=== PATIENT | male | born 1985 | race Caucasian/White ===

== ENCOUNTER → 2018-05-26 | Outpatient (CLI) | payer OTHER | END | disposition home or self-care (01) | LOC: RAD 12:09 | DX: Z13.83 Encounter for screening for respiratory disorder NEC (principal); Z87.09 Personal history of other diseases of the respiratory system | CPT/HCPCS: 71046 ==

== ENCOUNTER → 2018-06-21 | Outpatient (CLI) | payer OTHER ==
[2018-06-21 13:32] LABS: ADD MAN DIFF? NO
[2018-06-21 13:37] LABS: BASO # 0.1 x10^3/uL (0.0-0.2); BASO % 3 % (0-3); EOS # 0.2 x10^3/uL (0.0-0.7); EOS % 4 % (0-3); HEMATOCRIT 38.2 % (39.0-53.0); HEMOGLOBIN 13.2 g/dL (13.0-17.5); LYMPH # 1.6 x10^3/uL (1.0-4.8); LYMPH % 28 % (24-48); MEAN CORPUSCULAR HEMOGLOBIN 32 pg (25-35); MEAN CORPUSCULAR HGB CONC 35 g/dL (31-37); MEAN CORPUSCULAR VOLUME 91 fL (79-100); MONO # 0.5 x10^3/uL (0.0-1.1); MONO % 9 % (0-9); NEUT # 3.1 x10^3uL (1.8-7.7); NEUT % 56 % (31-73); PLATELET COUNT 309 x10^3/uL (140-400); RED BLOOD COUNT 4.19 x10^6/uL (4.30-5.70); RED CELL DISTRIBUTION WIDTH 13.2 % (11.5-14.5); WHITE BLOOD COUNT 5.5 x10^3/uL (4.0-11.0)
[2018-06-21 13:43] LABS: ANION GAP 8 (6-14); BLOOD UREA NITROGEN 2 mg/dL (8-26); CALCIUM 8.9 mg/dL (8.5-10.1); CARBON DIOXIDE 30 mmol/L (21-32); CHLORIDE 104 mmol/L (98-107); GFR 86.1; GLUCOSE 83 mg/dL (70-99); POTASSIUM 3.8 mmol/L (3.5-5.1); SODIUM 142 mmol/L (136-145)
[2018-06-21 13:57] LABS: INR 1.1 (0.8-1.1); PARTIAL THROMBOPLASTIN TIME 31 SEC (24-38); PROTHROMBIN TIME PATIENT 13.3 SEC (11.7-14.0)
== END | disposition home or self-care (01) ==
LOC: SURGPAT 13:12
DX: Z01.818 Encounter for other preprocedural examination (principal); I10 Essential (primary) hypertension; J43.9 Emphysema, unspecified; F32.9 Major depressive disorder, single episode, unspecified; Z81.8 Family history of other mental and behavioral disorders; Z87.09 Personal history of other diseases of the respiratory system; Z68.1 Body mass index [BMI] 19.9 or less, adult; Z91.5 Personal history of self-harm
CPT/HCPCS: 36415; 80048; 85025; 85610; 85730

== ENCOUNTER 2018-06-28 07:30 | Inpatient (IN) | payer OTHER ==
[~2018-06-28] VITALS: Ht 172.7 cm; Wt 56.8 kg
[~2018-06-28 07:30] MED LIST: HYDR25TA PO; IV RINGERS,LACTATED 1000ML 1,000 ML IV SCH; LIDOCAINE 1% PF 2 ML VIAL. ID PRN; MORPHINE SULFATE 2 MG/ML DISP.SYRIN. IV PRN; ONDANSETRON PF 4 MG/2 ML VIAL. IV PRN; PROCHLORPERAZINE 10 MG/2 ML VIAL. IV PRN; fentaNYL PF VIAL 100 MCG/2 ML VIAL IV PRN
[2018-06-28] MEDS ORDERED: LIDOCAINE 1% PF 30 ML VIAL. ONE (09:42)
[2018-06-28] MEDS ORDERED: BUPIVACAINE 0.5% 50 ML VIAL. ONE (09:43)
[2018-06-28] MEDS ORDERED: SURGICEL HEMOSTAT 4X8 EACH. ONE (09:44)
[2018-06-28] MEDS ORDERED: LIDOCAINE 2% PF Vial for OR 5 ML VIAL. ONE (10:21)
[2018-06-28] MEDS ORDERED: MIDAZOLAM HCL/PF 2 MG/2 ML VIAL. ONE (10:21)
[2018-06-28] MEDS ORDERED: PROPOFOL 20 ML IV ONE (10:21)
[2018-06-28] MEDS ORDERED: fentaNYL PF VIAL 100 MCG/2 ML VIAL ONE ×4 (10:21→14:10)
[2018-06-28] MEDS ORDERED: FAMOTIDINE 20 MG/2 ML VIAL ONE (10:21)
[2018-06-28] MEDS ORDERED: DEXAMETHASONE SOD PHOS 20 MG/5 ML VIAL. ONE (10:21)
[2018-06-28] MEDS ORDERED: ONDANSETRON PF 4 MG/2 ML VIAL. ONE (10:21)
[2018-06-28] MEDS ORDERED: ROCURONIUM 50 MG/5 ML VIAL. ONE (10:21)
--- NOTE | 2018-06-28 11:42 | PDOC1 ---
History and Physical Date of Admission Date of Admission DATE: 06/28/18 TIME: 11:37 Identification/Chief Complaint Chief Complaint Recurrent PTX Source Source: Chart review, Patient History of Present Illness History of Present Illness 32 year old male with a hx of B/L PTXs. s/p L VATS, apical wedge and mechanical pleurodesis 2 months ago. He returns today for a R VATS, wedge and pleurodesis. He denies any symptoms. Past Medical History Cardiovascular: No pertinent hx Pulmonary: COPD, Other CENTRAL NERVOUS SYSTEM: Seizure GI: No pertinent hx Heme/Onc: No pertinent hx Psych: Anxiety, Addictions, Bipolar, Depression, Psychosis Rheumatologic: No pertinent hx Infectious disease: No pertinent hx Renal/: No pertinent hx Endocrine: No pertinent hx Past Surgical History Past Surgical History: Other (L VATS) Family History Family History: No Significant Social History ALCOHOL: rare Current Medications Current Medications Current Medications Ondansetron HCl (Zofran) 4 mg PRN Q6HRS PRN IV NAUSEA/VOMITING; Start 06/28/18 at 07:00; Stop 06/28/18 at 23:00 Fentanyl Citrate (Fentanyl 2ml Vial) 25 mcg PRN Q5MIN PRN IV MILD PAIN; Start 06/28/18 at 07:00; Stop 06/28/18 at 23:00 Fentanyl Citrate (Fentanyl 2ml Vial) 50 mcg PRN Q5MIN PRN IV MODERATE TO SEVERE PAIN; Start 06/28/18 at 07:00; Stop 06/28/18 at 23:00 Morphine Sulfate (Morphine Sulfate) 1 mg PRN Q10MIN PRN IV SEVERE PAIN; Start 06/28/18 at 07:00; Stop 06/28/18 at 23:00 Ringer's Solution 1,000 ml @ 30 mls/hr Q24H IV Last administered on 06/28/18at 09:59; Start 06/28/18 at 07:00; Stop 06/28/18 at 18:59 Lidocaine HCl (Xylocaine-Mpf 1% Vial) 2 ml PRN 1X PRN ID IV START; Start at 07:00; Stop 06/28/18 at 23:00 Prochlorperazine Edisylate (Compazine) 5 mg PACU PRN PRN IV NAUSEA, MRX1; Start 06/28/18 at 07:00; Stop 06/28/18 at 23:00 Cefazolin Sodium 50 ml @ 100 mls/hr 1X PREOP PRN IV PRIOR TO PROCEDURE; Start 06/28/18 at 06:00; Stop 06/28/18 at 18:00 Lidocaine HCl (Lidocaine Pf 2% Vial) 5 ml STK-MED ONCE .ROUTE ; Start 06/28/18 at 10:21; Stop 06/28/18 at 10:22; Status DC Famotidine (Pepcid Vial) 20 mg STK-MED ONCE .ROUTE ; Start 06/28/18 at 10:21; Stop 06/28/18 at 10:22; Status DC Dexamethasone Sodium Phosphate (Decadron) 20 mg STK-MED ONCE .ROUTE ; Start 06/28 at 10:21; Stop 06/28/18 at 10:22; Status DC Propofol 20 ml @ As Directed STK-MED ONCE IV ; Start 06/28/18 at 10:21; Stop 06/28 at 10:22; Status DC Ondansetron HCl (Zofran) 4 mg STK-MED ONCE .ROUTE ; Start 06/28/18 at 10:21; Stop 06/28/18 at 10:22; Status DC Midazolam HCl (Versed) 2 mg STK-MED ONCE .ROUTE ; Start 06/28/18 at 10:21; Stop 06/28/18 at 10:22; Status DC Fentanyl Citrate (Fentanyl 2ml Vial) 100 mcg STK-MED ONCE .ROUTE ; Start at 10:21; Stop 06/28/18 at 10:22; Status DC Rocuronium [place] (Zemuron) 50 mg STK-MED ONCE .ROUTE ; Start 06/28/18 at 10:21 ; Stop 06/28/18 at 10:22; Status DC Lidocaine HCl (Lidocaine 1% Pf) 30 ml STK-MED ONCE .ROUTE ; Start 06/28/18 at 09: 42; Stop 06/28/18 at 10:44; Status DC Bupivacaine HCl (Marcaine 0.5%) 50 ml STK-MED ONCE .ROUTE ; Start 06/28/18 at 09: 43; Stop 06/28/18 at 10:44; Status DC Cellulose (Surgicel Hemostat 4x8) 1 each STK-MED ONCE .ROUTE ; Start 06/28/18 at 09:44; Stop 06/28/18 at 10:45; Status DC Active Scripts Active Reported Hydroxyzine Hcl 25 Mg Tablet 1 Tab PO TID Allergies Allergies: Coded Allergies: aspartame (Verified Allergy, Severe, SUGAR SUBSTITUTES = THROAT SWELLS, 06/28/18) spinach (Verified Allergy, Severe, 06/28/18) throat swelling diazepam (Verified Allergy, Intermediate, 06/28/18) per pt haloperidol (Verified Adverse Reaction, Severe, 06/28/18) hyperthermia lorazepam (Verified Adverse Reaction, Severe, 06/28/18) ativan causes patient to become very violent alprazolam (Verified Adverse Reaction, Intermediate, 06/28/18) irritability, "psychotic break" per patient bupropion (Verified Adverse Reaction, Intermediate, 06/28/18) anxiety fluticasone (Verified Adverse Reaction, Intermediate, 06/28/18) irritation,nasal bleeding ROS General: No: Chills, Night Sweats, Fatigue, Malaise, Appetite PSYCHOLOGICAL ROS: YES: Anxiety, Behavioral Disorder; No: Concentration difficultie, Decreased libido, Depression, Disorientation, Hallucinations, Hostility, Irritablity, Memory difficulties, Mood Swings, Obsessive thoughts, Physical abuse, Sexual abuse, Sleep disturbances, Suicidal ideation Eyes: No Blurry vision, No Decreased vision, No Double vision, No Dry eyes, No Excessive tearing, No Eye Pain, No Itchy Eyes, No Loss of vision, No Photophobia , No Scotomata, No Uses contacts, No Uses glasses HEENT: No: Heacaches, Visual Changes, Hearing change, Nasal congestion, Nasal discharge, Oral lesions, Sinus pain, Sore Throat, Epistaxis, Sneezing, Snoring, Tinnitus, Vertigo, Vocal changes ALLERGY AND IMMUNOLOGY: No: Hives, Insect Bite Sensitivity, Itchy/Watery Eyes, Nasal Congestion, Post Nasal Drip, Seasonal Allergies Hematological and Lymphatic: No: Bleeding Problems, Blood Clots, Blood Transfusions, Brusing, Night Sweats, Pallor, Swollen Lymph Nodes ENDOCRINE: No: Breast Changes, Galactorrhea, Hair Pattern Changes, Hot Flashes , Malaise/lethargy, Mood Swings, Palpitations, Polydipsia/polyuria, Skin Changes , Temperature Intolerance, Unexpected Weight Changes Respiratory: No: Cough, Hemoptysis, Orthopnea, Pleuritic Pain, Shortness of breath, SOB with excertion, Sputum Changes, Stridor, Tachypnea, Wheezing Cardiovascular: No Chest Pain, No Palpitations, No Orthopnea, No Paroxysmal Noc. Dyspnea, No Edema, No Lt Headedness Gastrointestinal: No Nausea, No Vomiting, No Abdominal Pain, No Diarrhea, No Constipation, No Melena, No Hematochezia Genitourinary: No Dysuria, No Frequency, No Incontinence, No Hematuria, No Retention, No Discharge, No Urgency, No Pain, No Flank Pain Musculoskeletal: No Gait Disturbance, No Joint Pain, No Joint Stiffness, No Joint Swelling, No Muscle Pain, No Muscular Weakness, No Pain In:, No Swelling In:, No Other Neurological: Yes Weakness; No Behavorial Changes, No Bowel/Bladder ControlChng, No Confusion, No Dizziness, No Gait Disturbance, No Headaches, No Impaired Coord/balance, No Memory Loss, No Numbness/Tingling, No Seizures, No Speech Problems, No Tremors, No Visual Changes, No Other Skin: No Dry Skin, No Eczema, No Hair Changes, No Lumps, No Mole Changes, No Mottling, No Nail Changes, No Pruritus, No Rash, No Skin Lesion Changes, No Acne Physical Exam General: Alert, Oriented X3, No acute distress HEENT: Atraumatic, PERRLA, EOMI Lungs: Clear to auscultation Heart: S1S2, RRR, no thrills, no gallops, no murmurs Abdomen: Normal bowel sounds, Soft, No tenderness Rectal Exam: deferred Extremities: No edema Skin: No significant lesion Neuro: Normal gait, Normal speech, Strength at 5/5 X4 ext, Normal tone, Sensation intact, Cranial nerves 3-12 NL, Reflexes 2+ Vitals Vitals Vital Signs Date Time Temp Pulse Resp B/P (MAP) Pulse Ox O2 Delivery O2 Flow Rate FiO2 06/28/18 09:53 98.0 65 18 100 98.0 06/28/18 09:49 105/65 Room Air VTE Prophylaxis Ordered VTE Prophylaxis Devices: Yes VTE Pharmacological Prophylaxi: Yes Assessment/Plan Assessment/Plan 2 year old male with a hx of B/L PTXs. s/p L VATS, apical wedge and mechanical pleurodesis 2 months ago. He denies any symptoms. Proceed with R VATS, wedge and pleurodesis. TOBY MG MD Jun 28, 2018 11:42
[2018-06-28] MEDS ORDERED: NEOSTIGMINE METHYLSULFATE 5 MG/5 ML SYRINGE. ONE (12:07)
[2018-06-28] MEDS ORDERED: GLYCOPYRROLATE 1 MG/5 ML VIAL. ONE (12:07)
[2018-06-28] MEDS ORDERED: SEVOFLURANE 61 TO 120 MINUTES. IH ONE (12:43)
--- NOTE | 2018-06-28 12:49 | PDOC ---
BRIEF OPERATIVE NOTE Date: Jun 28, 2018 Pre-Op Diagnosis Recurrent right spontaneous pneumothorax COPD Post-Op Diagnosis Recurrent right spontaneous pneumothorax COPD Procedure Performed Right Video-Assisted thoracoscopy, right upper lobe wedge resection x 2, mechanical pleurodesis Surgeon Toby Cazares MD Supervisor [employer]ation RAINA Bello Anesthesiologist Bob Echevarria MD Anesthesia Type: General Blood Loss 10 mls IV Fluid 500 mls Urine Output N/A Specimens Obtained Right upper lobe wedge x2 Findings Significant right upper lobe bullous disease-large apical wedge performed Additional bullous anterior segment of the right upper lobe Complications None TOBY CAZARES MD Jun 28, 2018 12:49
--- NOTE | 2018-06-28 12:51 | PDOC4 ---
Operative Note Operative Note Date Jun 28, 2018 Preoperative diagnosis Recurrent right spontaneous pneumothorax COPD Postoperative diagnosis Recurrent right spontaneous pneumothorax COPD Procedure performed Right Video-Assisted thoracoscopy, right upper lobe wedge resection x 2, mechanical pleurodesis Surgeon Toby Cazares MD Vault Mechanic RAINA Bello Anesthesiologist Bob Echevarria MD Anesthesia type General Blood loss 10 mls IV fluids 500 mls Urine output N/A Specimens obtained Right upper lobe wedge x2 Findings Significant right upper lobe bullous disease-large apical wedge performed Additional bullous anterior segment of the right upper lobe Complications None Indication 32 year old male with a hx of B/L PTXs. s/p L VATS, apical wedge and mechanical pleurodesis 2 months ago. He returns today for a R VATS, wedge and pleurodesis. He denies any symptoms. Operation The patient's identity was confirmed using two unique identifies. The right chest was marked. The patient was transferred to the operating room and placed initially in supine position. An arterial line was inserted. The airway was secured with a double lumen ET tube. The patient was then placed in the left lateral decubitus position with the right side up. The right chest was prepped and draped in usual sterile surgical fashion. A timeout was then performed. The right lung was isolated. Access to the pleural cavity was gained by placing a 12 mm port in the 7th intercostal space in the midaxillary line. Two additional 1 cm working ports were placed in the fifth intercostal space at the posterior axillary line and the fifth intercostal space at the anterior axillary line. The thoracoscope was inserted in the pleural cavity which was inspected. Multiple blebs were identified at the apex of the right upper lobe. I performed a single wedge resection of the apex of the right upper lobe which contained the bullae. The resection was performed using two blue loads of the 60 mm echelon stapler. The specimen was removed with an Endo Catch bag and sent to pathology. A bleb was also identified at the anterior segment of the right upper lobe which was also wedged using two blue loads of the 60 mm echelon stapler. The pleural cavity was inspected for hemostasis and no bleeding was identified. I then proceeded with mechanical pleurodesis. The anterior, lateral, posterior and apical surfaces of the parietal pleura were scraped using a Bovie pad. A 28 [place] straight chest tube was then placed through the camera port and secured with a No 2 silk stitch. The tube was connected to a Pleur-evac at - 20 cm water suction. Anesthesia was then asked to ventilate the right lung, thus confirming with direct visualization that the lung had fully expanded. 30 mls of 1/2 marcaine with 1% lidocaine was injected into the port sites for local anesthesia. The remaining 2 ports were closed with an 0 Vicryl for the fascia, followed by 2-0 Vicryl for the subcutaneous tissues. The epidermis was reapproximated with 4-0 Monocryl. Dermabond was applied to all incisions and a sterile dressing onto the chest tube. At the end of procedure the instrument, sponge and needle counts were correct. Anesthesia was reversed, the patient was extubated and transferred to PACU in stable condition having tolerated the procedure well. TOBY CAZARES MD Jun 28, 2018 12:51
[2018-06-28] MEDS ORDERED: 0.9 % SODIUM CHLORIDE 10 ML DISP.SYRIN. IV PRN (13:00)
[2018-06-28] MEDS ORDERED: PROCHLORPERAZINE 10 MG/2 ML VIAL. IV PRN (13:00)
[2018-06-28] MEDS ORDERED: METOCLOPRAMIDE HCL 10 MG/2 ML VIAL. IV PRN (13:00)
[2018-06-28] MEDS ORDERED: ONDANSETRON PF 4 MG/2 ML VIAL. IV PRN (13:00)
[2018-06-28] MEDS ORDERED: NALOXONE 0.4 MG/ML VIAL. IV PRN (13:00)
[2018-06-28] MEDS: fentaNYL PF VIAL 100 MCG/2 ML VIAL IV PRN ×4 (13:33→14:30)
--- NOTE | 2018-06-28 13:50 | RAD ---
Portable chest, 06/28/2018: HISTORY: Postop VATS, pleurodesis Comparison is made to a study from 05/26/2018. A right chest tube is now in place. There is a small right apical pneumothorax. There are surgical sutures related to the right upper lobe. Mild linear opacities in the right upper lobe probably represent areas of atelectasis. There are old surgical sutures related to the left upper lobe. The previously seen tiny left apical pneumothorax has resolved. No left lung infiltrate is seen. There is no evidence of pleural fluid. The heart size is normal. IMPRESSION: Postsurgical change involving the right upper lung with mild linear atelectasis and a small right apical pneumothorax. Electronically signed by: Sheng Rosario MD (06/28/2018 1:46 PM) [facility]
[2018-06-28 17:00] VITALS: BP 119/74
[2018-06-28] MEDS: oxyCODONE/APAP 5/325 1 TAB TABLET PO PRN ×2 (17:26→21:23)
[2018-06-28] MEDS ORDERED: ceFAZolin SODIUM 1 GM in IV DEXTROSE 5% 50 ML IV SCH (17:30)
[2018-06-28] MEDS: ceFAZolin SODIUM IV Push 1 GM VIAL. IVP SCH ×2 (18:09→23:32)
[2018-06-28 19:20] VITALS: BP 109/59
[2018-06-28] MEDS: MORPHINE SULFATE 2 MG/ML DISP.SYRIN. IV PRN (19:50)
[2018-06-28] MEDS: FAMOTIDINE 20 MG TABLET. PO SCH (19:51)
[2018-06-28] MEDS: DOCUSATE SODIUM 100 MG CAPSULE. PO SCH (19:52)
[2018-06-28] MEDS: SENNOSIDES/DOCUSATE 8.6/50MG TABLET. PO SCH (19:52)
[2018-06-28] MEDS: HEPARIN PF for SUB-Q USE 5,000 UNIT/0.5 ML VIAL. SQ SCH (21:00)
--- NOTE | 2018-06-28 22:51 | RAD ---
PORTABLE CHEST 1V dated 06/28/2018 7:44 PM. Comparison: 06/28/2018. Clinical Indication: INPATIENT. AIR LEAK. RECENT CHEST TUBE. PRIOR XRAYS., FOLLOW-UP CHEST TUBE. Findings: Single upright portable exam performed. There is suture material at the right apex with chest tube in place, unchanged. Small right apical pneumothorax appears of somewhat increased in size from prior study measuring about 4.9 cm from the pleural edge to the apical chest wall versus 1.6 cm previously. Lungs are hyperinflated but otherwise clear. Prominent interstitial markings, unchanged. No new infiltrate or pleural effusion. Impression: Mild interval increase in small right apical pneumothorax with chest tube in place. Electronically signed by: Evgeny Lama MD (06/28/2018 10:48 PM) [id number]
[2018-06-28 23:06] VITALS: BP 109/59
[2018-06-29] MEDS ORDERED: hydrOXYzine PAMOATE 25 MG CAPSULE PO ONE
[2018-06-29] MEDS: oxyCODONE/APAP 5/325 1 TAB TABLET PO PRN ×5 (01:45→20:52)
[2018-06-29 03:19] VITALS: BP 117/46
[2018-06-29 05:04] LABS: HEMATOCRIT 38.5 % (39.0-53.0); RED BLOOD COUNT 4.18 x10^6/uL (4.30-5.70); RED CELL DISTRIBUTION WIDTH 13.2 % (11.5-14.5); WHITE BLOOD COUNT 13.4 x10^3/uL (4.0-11.0)
[2018-06-29] MEDS: ceFAZolin SODIUM IV Push 1 GM VIAL. IVP SCH (05:33)
[2018-06-29 05:36] LABS: CALCIUM 9.3 mg/dL (8.5-10.1); CREATININE 0.9 mg/dL (0.7-1.3); GFR 97.2; POTASSIUM 4.4 mmol/L (3.5-5.1)
[2018-06-29 07:00] VITALS: BP 119/73
--- NOTE | 2018-06-29 08:41 | RAD ---
Portable chest, 06/29/2018: HISTORY: Postop evaluation, follow-up pneumothorax Comparison is made to yesterday's study at 7:44 PM. The right chest tube is unchanged in position. The right-sided pneumothorax has increased slightly in size currently estimated at 25-30 percent in volume. Right lateral subcutaneous emphysema is unchanged. The left chest remains clear. The heart size is normal. No pleural fluid is evident. IMPRESSION: Moderate sized right pneumothorax which has increased slightly in size since yesterday evening's exam. Electronically signed by: Sheng Rosario MD (06/29/2018 8:36 AM) [facility]
[2018-06-29] MEDS: HEPARIN PF for SUB-Q USE 5,000 UNIT/0.5 ML VIAL. SQ SCH ×2 (09:00→21:00)
[2018-06-29] MEDS: DOCUSATE SODIUM 100 MG CAPSULE. PO SCH ×2 (09:27→20:52)
[2018-06-29] MEDS: SENNOSIDES/DOCUSATE 8.6/50MG TABLET. PO SCH ×2 (09:27→20:52)
[2018-06-29] MEDS: FAMOTIDINE 20 MG TABLET. PO SCH ×2 (09:28→20:51)
[2018-06-29] MEDS: hydrOXYzine PAMOATE 25 MG CAPSULE PO SCH ×3 (09:28→20:52)
--- NOTE | 2018-06-29 10:07 | PDOC ---
Progress Note Subjective Subjective pain controlled hiccups during the night feels like CT is sucking air through his nose and stops when he clamps his nose Called to see patient due to air leak and CXR report ROS ROS No nausea No vomiting No pain No rash Vital Sign Vital Signs Vital Signs Date Time Temp Pulse Resp B/P (MAP) Pulse Ox O2 Delivery O2 Flow Rate FiO2 06/29/18 09:28 Room Air 06/29/18 07:00 97.9 71 18 119/73 (88) 97 97.9 06/28/18 19:50 6.0 Physical Exam PHYSICAL EXAM GENERAL: NAD, Alert HEENT: PERR NECK: Supple, LUNGS: Clear; mildly diminished on right; right CT with air leak on suction HEART: S1S2, no gallop, no murmur ABD: Soft, NT, no organomegaly, no rebound EXT: No edema, no cyanosis INFORMATION CLERK: Alert, oriented x 3, no focal neurologic deficit SKIN: No rash IV: no redness or drainage Labs Lab Laboratory Tests Test 06/29/18 04:00 White Blood Count 13.4 x10^3/uL (4.0-11.0) Red Blood Count 4.18 x10^6/uL (4.30-5.70) Hemoglobin 13.0 g/dL (13.0-17.5) Hematocrit 38.5 % (39.0-53.0) Mean Corpuscular Volume 92 fL (79-100) Mean Corpuscular Hemoglobin 31 pg (25-35) Mean Corpuscular Hemoglobin Concent 34 g/dL (31-37) Red Cell Distribution Width 13.2 % (11.5-14.5) Platelet Count 301 x10^3/uL (140-400) Sodium Level 138 mmol/L (136-145) Potassium Level 4.4 mmol/L (3.5-5.1) Chloride Level 101 mmol/L (98-107) Carbon Dioxide Level 29 mmol/L (21-32) Anion Gap 8 (6-14) Blood Urea Nitrogen 7 mg/dL (8-26) Creatinine 0.9 mg/dL (0.7-1.3) Estimated GFR (Cockcroft-Gault) 97.2 Glucose Level 145 mg/dL (70-99) Calcium Level 9.3 mg/dL (8.5-10.1) Objective Assessment 1. h/o bilateral ptx with previous left VATS and wedge resection --returns for right side --s/p right VATS with wedge resection X 2 of RUL and mechanical pleurodesis --CXR read as increasing ptx -- more likely from wedge resection --CT site redressed --- no palpable subq emphysema at site Plan Plan of Care 1. leave chest tube for now ZAHIRA DON GO CART MECHANIC Jun 29, 2018 10:07
[2018-06-29 11:00] VITALS: BP 106/63
--- NOTE | 2018-06-29 12:22 | CONS ---
DATE OF CONSULTATION: ATTENDING PHYSICIAN: Dr. Cazares. REASON FOR CONSULTATION: Pneumothorax, status post VAT. HISTORY OF PRESENT ILLNESS: The patient is known to us. He has history of bilateral pneumothorax. He underwent left-sided video-assisted thoracoscopic apical wedge resection and mechanical pleurodesis 2 months ago on his left side. He then returned to the hospital again for pursuing the same procedure on the right side. Procedure was performed yesterday by Dr. Cazares. He underwent right-sided video-assisted thoracoscopic right upper lobe wedge resection and mechanical pleurodesis. He was found to have significant right upper lobe bullous disease and large apical wedge was performed. The patient's chest x-ray has shown increase in the size of pneumothorax. He has chest tube, which is patent and has continuous air leak. He denies any shortness of breath. He admits to using marijuana sublingually. He did quit tobacco in February. PAST MEDICAL HISTORY: Significant for history of recurrent bilateral pneumothorax status post left VAT with apical wedge resection and mechanical pleurodesis 2 months ago. History of seizure disorder, history of bipolar disorder, history of anxiety, history of marijuana abuse, history of tobacco use, history of psychosis. PAST SURGICAL HISTORY: Previous left VAT 2 months ago. FAMILY HISTORY: Noncontributory to lungs. ALLERGIES: Were all reviewed as listed in the MRAD. MEDICATIONS: Also reviewed as listed in the MRAD. PHYSICAL EXAMINATION: GENERAL: He is awake, following commands, in no obvious respiratory distress. VITAL SIGNS: Stable. Pulse ox 97% on room air. NECK: Supple. LUNGS: With slightly diminished breath sounds, right side. CARDIOVASCULAR: Regular rate. ABDOMEN: Soft. EXTREMITIES: With no pitting edema. Chest x-ray was reviewed as discussed above. Labs are reviewed. White cell count 13.4, hemoglobin 13.0. IMPRESSION: 1. The patient with a history of bilateral recurrent pneumothorax. He underwent left-sided VAT with apical wedge resection and mechanical pleurodesis 2 months ago. He now returns for a right-sided similar procedure. 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 2. Abnormal chest x-ray with moderate-size pneumothorax. Chest tube is patent with large air leak. 3. History of tobaccoism and marijuana use. 4. History of psychosis and bipolar disorder. RECOMMENDATION: 1. Continue present chest tube management per Dr. Cazares. Chest tube was placed to suction. 2. Follow chest x-rays. 3. P.r.n. oxygen. 4. P.r.n. bronchodilators. 5. We will follow along with you. CASE LAMAR MD DR: MELITA/angel JOB#: [id number] / [id number]
--- NOTE | 2018-06-29 12:53 | PDOC ---
Progress Note Subjective Subjective Large air leak. CXR shows RUL collapsed. Suction not on ROS ROS No nausea No vomiting No pain No rash Vital Sign Vital Signs Vital Signs Date Time Temp Pulse Resp B/P (MAP) Pulse Ox O2 Delivery O2 Flow Rate FiO2 06/29/18 11:00 97.4 71 18 106/63 (77) 96 Room Air 97.4 18 19:50 6.0 Physical Exam PHYSICAL EXAM GENERAL: NAD, Alert HEENT: PERR NECK: Supple, LUNGS: Clear; mildly diminished on right; right CT with air leak on suction HEART: S1S2, no gallop, no murmur ABD: Soft, NT, no organomegaly, no rebound EXT: No edema, no cyanosis COOK ROAST: Alert, oriented x 3, no focal neurologic deficit SKIN: No rash IV: no redness or drainage Labs Lab Laboratory Tests Test 06/29/18 04:00 White Blood Count 13.4 x10^3/uL (4.0-11.0) Red Blood Count 4.18 x10^6/uL (4.30-5.70) Hemoglobin 13.0 g/dL (13.0-17.5) Hematocrit 38.5 % (39.0-53.0) Mean Corpuscular Volume 92 fL (79-100) Mean Corpuscular Hemoglobin 31 pg (25-35) Mean Corpuscular Hemoglobin Concent 34 g/dL (31-37) Red Cell Distribution Width 13.2 % (11.5-14.5) Platelet Count 301 x10^3/uL (140-400) Sodium Level 138 mmol/L (136-145) Potassium Level 4.4 mmol/L (3.5-5.1) Chloride Level 101 mmol/L (98-107) Carbon Dioxide Level 29 mmol/L (21-32) Anion Gap 8 (6-14) Blood Urea Nitrogen 7 mg/dL (8-26) Creatinine 0.9 mg/dL (0.7-1.3) Estimated GFR (Cockcroft-Gault) 97.2 Glucose Level 145 mg/dL (70-99) Calcium Level 9.3 mg/dL (8.5-10.1) Objective Assessment POD#1, s/p R VATS apical wedge resection and mechanical pleurodesis Large air leak. CXR shows RUL collapsed. Suction not on Plan Plan of Care -20mmHg suction re-started Repeat CXR in an hour to confirm re-expansion of RUL-this will help with air leak healing Will also change PleuroVac Given friability of lungs, it may take time for his air leak to heal. This was an issue when we did his L VATS If lung fails to re-expand with suction, may have to insert 2nd chest tube TBOY MG MD Jun 29, 2018 12:52
--- NOTE | 2018-06-29 13:13 | RAD ---
EXAM: CHEST 1 VIEW History: Chest tube COMPARISON: Same day exam 7:19 AM TECHNIQUE: Single portable radiograph of the chest FINDINGS: Right-sided chest tube is unchanged. Moderate sized right sided pneumothorax is unchanged. Surgical changes left apical lung. Right lateral subcutaneous emphysema is again identified. IMPRESSION: Moderate size right sided pneumothorax with right-sided chest tube is unchanged. Electronically signed by: Kali De León MD (06/29/2018 1:10 PM) [id number]
[2018-06-29 15:00] VITALS: BP 134/77
[2018-06-29] MEDS: MORPHINE SULFATE 2 MG/ML DISP.SYRIN. IV PRN ×2 (16:03→22:33)
--- NOTE | 2018-06-29 16:58 | RAD ---
Chest radiograph 06/29/2018 4:47 PM INDICATION: Pneumothorax. Chest tube. COMPARISON: Chest radiograph June 29, 2018 1158 hours TECHNIQUE: Portable upright frontal view of the chest is provided. FINDINGS: The cardiomediastinal silhouette is within normal limits. Right-sided thoracostomy tube is identified in similar position. There is decrease in size of a right sided pneumothorax with approximately 4.5 cm pleural separation, previously measuring approximately 6.5 cm in pleural separation. There is improved mediastinal shift. No pulmonary vascular congestion. No pleural effusions. Suture material is identified along the right lung. Kidneys gas is noted along the right lateral chest wall. IMPRESSION: Improving right-sided pneumothorax status post placement of thoracostomy tube. Electronically signed by: Jaci Carrasco MD (06/29/2018 4:55 PM) [id number]
[2018-06-29 19:29] VITALS: BP 129/75
[2018-06-29 22:48] VITALS: BP 126/68
[2018-06-30] MEDS: oxyCODONE/APAP 5/325 1 TAB TABLET PO PRN ×4 (01:29→19:44)
[2018-06-30 02:24] VITALS: BP 104/66
[2018-06-30 04:15] LABS: HEMATOCRIT 38.9 % (39.0-53.0); HEMOGLOBIN 13.1 g/dL (13.0-17.5); RED BLOOD COUNT 4.19 x10^6/uL (4.30-5.70); RED CELL DISTRIBUTION WIDTH 13.4 % (11.5-14.5); WHITE BLOOD COUNT 13.2 x10^3/uL (4.0-11.0)
[2018-06-30 05:01] LABS: CALCIUM 9.6 mg/dL (8.5-10.1); CREATININE 0.8 mg/dL (0.7-1.3); GFR 111.3
[2018-06-30 07:00] VITALS: BP 119/66
--- NOTE | 2018-06-30 08:07 | RAD ---
Portable chest, 06/30/2018: HISTORY: Postop evaluation Comparison is made to yesterday's study. The right chest tube remains in place. The pneumothorax in the right upper chest is stable to perhaps slightly decreased. There is unchanged mild chest wall emphysema laterally on the right. The heart size is normal. The left chest remains clear. No pleural fluid is seen. No new abnormality is detected. IMPRESSION: Stable right pneumothorax. Electronically signed by: Sheng Rosario MD (06/30/2018 8:03 AM) [facility]
--- NOTE | 2018-06-30 08:17 | PDOC ---
Progress Note Subjective Subjective Air leak has decreased. CXR improved. No other issues. ROS ROS No nausea No vomiting No pain No rash Vital Sign Vital Signs Vital Signs Date Time Temp Pulse Resp B/P (MAP) Pulse Ox O2 Delivery O2 Flow Rate FiO2 06/30/18 07:00 98.7 92 20 119/66 (83) 98 Room Air 98.7 Physical Exam PHYSICAL EXAM GENERAL: NAD, Alert HEENT: PERR NECK: Supple, LUNGS: Clear; mildly diminished on right; right CT with air leak on suction HEART: S1S2, no gallop, no murmur ABD: Soft, NT, no organomegaly, no rebound EXT: No edema, no cyanosis SENIOR ACCOUNT MANAGER: Alert, oriented x 3, no focal neurologic deficit SKIN: No rash IV: no redness or drainage Labs Lab Laboratory Tests Test 18 03:30 White Blood Count 13.2 x10^3/uL (4.0-11.0) Red Blood Count 4.19 x10^6/uL (4.30-5.70) Hemoglobin 13.1 g/dL (13.0-17.5) Hematocrit 38.9 % (39.0-53.0) Mean Corpuscular Volume 93 fL (79-100) Mean Corpuscular Hemoglobin 31 pg (25-35) Mean Corpuscular Hemoglobin Concent 34 g/dL (31-37) Red Cell Distribution Width 13.4 % (11.5-14.5) Platelet Count 297 x10^3/uL (140-400) Sodium Level 139 mmol/L (136-145) Potassium Level 4.0 mmol/L (3.5-5.1) Chloride Level 102 mmol/L (98-107) Carbon Dioxide Level 27 mmol/L (21-32) Anion Gap 10 (6-14) Blood Urea Nitrogen 11 mg/dL (8-26) Creatinine 0.8 mg/dL (0.7-1.3) Estimated GFR (Cockcroft-Gault) 111.3 Glucose Level 95 mg/dL (70-99) Calcium Level 9.6 mg/dL (8.5-10.1) Objective Assessment POD#2, s/p R VATS apical wedge resection and mechanical pleurodesis Air leak has decreased. CXR improved. No other issues. Plan Plan of Care Needs to stay on -20mmHg suction at all times Given friability of lungs/emphysema, it will take time for his air leak to heal. This was an issue when we did his L VATS TOBY MG MD Jun 30, 2018 08:17
[2018-06-30] MEDS: SENNOSIDES/DOCUSATE 8.6/50MG TABLET. PO SCH ×2 (08:36→20:25)
[2018-06-30] MEDS: hydrOXYzine PAMOATE 25 MG CAPSULE PO SCH ×3 (08:36→20:25)
[2018-06-30] MEDS: DOCUSATE SODIUM 100 MG CAPSULE. PO SCH ×2 (08:36→20:25)
[2018-06-30] MEDS: FAMOTIDINE 20 MG TABLET. PO SCH ×2 (08:36→20:25)
[2018-06-30] MEDS: MORPHINE SULFATE 2 MG/ML DISP.SYRIN. IV PRN ×2 (08:39→15:26)
[2018-06-30] MEDS: HEPARIN PF for SUB-Q USE 5,000 UNIT/0.5 ML VIAL. SQ SCH ×2 (09:00→20:25)
--- NOTE | 2018-06-30 10:07 | PDOC ---
PULMONARY PROGRESS NOTES Subjective no soa air leak less Vitals Vital Signs Date Time Temp Pulse Resp B/P (MAP) Pulse Ox O2 Delivery O2 Flow Rate FiO2 06/30/18 09:22 98 Room Air 6.0 06/30/18 07:00 98.7 92 20 119/66 (83) 98.7 General: Alert, No acute distress Lungs: Other (sc air right side) Cardiovascular: S1, S2 Abdomen: Soft, Non-tender Neuro Exam: Alert Extremities: No Edema Labs Laboratory Tests Test 06/29/18 04:00 06/30/18 03:30 White Blood Count 13.4 x10^3/uL (4.0-11.0) 13.2 x10^3/uL (4.0-11.0) Red Blood Count 4.18 x10^6/uL (4.30-5.70) 4.19 x10^6/uL (4.30-5.70) Hemoglobin 13.0 g/dL (13.0-17.5) 13.1 g/dL (13.0-17.5) Hematocrit 38.5 % (39.0-53.0) 38.9 % (39.0-53.0) Mean Corpuscular Volume 92 fL (79-100) 93 fL (79-100) Mean Corpuscular Hemoglobin 31 pg (25-35) 31 pg (25-35) Mean Corpuscular Hemoglobin Concent 34 g/dL (31-37) 34 g/dL (31-37) Red Cell Distribution Width 13.2 % (11.5-14.5) 13.4 % (11.5-14.5) Platelet Count 301 x10^3/uL (140-400) 297 x10^3/uL (140-400) Sodium Level 138 mmol/L (136-145) 139 mmol/L (136-145) Potassium Level 4.4 mmol/L (3.5-5.1) 4.0 mmol/L (3.5-5.1) Chloride Level 101 mmol/L (98-107) 102 mmol/L (98-107) Carbon Dioxide Level 29 mmol/L (21-32) 27 mmol/L (21-32) Anion Gap 8 (6-14) 10 (6-14) Blood Urea Nitrogen 7 mg/dL (8-26) 11 mg/dL (8-26) Creatinine 0.9 mg/dL (0.7-1.3) 0.8 mg/dL (0.7-1.3) Estimated GFR (Cockcroft-Gault) 97.2 111.3 Glucose Level 145 mg/dL (70-99) 95 mg/dL (70-99) Calcium Level 9.3 mg/dL (8.5-10.1) 9.6 mg/dL (8.5-10.1) Laboratory Tests Test 06/30/18 03:30 White Blood Count 13.2 x10^3/uL (4.0-11.0) Red Blood Count 4.19 x10^6/uL (4.30-5.70) Hemoglobin 13.1 g/dL (13.0-17.5) Hematocrit 38.9 % (39.0-53.0) Mean Corpuscular Volume 93 fL (79-100) Mean Corpuscular Hemoglobin 31 pg (25-35) Mean Corpuscular Hemoglobin Concent 34 g/dL (31-37) Red Cell Distribution Width 13.4 % (11.5-14.5) Platelet Count 297 x10^3/uL (140-400) Sodium Level 139 mmol/L (136-145) Potassium Level 4.0 mmol/L (3.5-5.1) Chloride Level 102 mmol/L (98-107) Carbon Dioxide Level 27 mmol/L (21-32) Anion Gap 10 (6-14) Blood Urea Nitrogen 11 mg/dL (8-26) Creatinine 0.8 mg/dL (0.7-1.3) Estimated GFR (Cockcroft-Gault) 111.3 Glucose Level 95 mg/dL (70-99) Calcium Level 9.6 mg/dL (8.5-10.1) Medications Active Scripts Medications Dose Route/Sig Max Daily Dose Days Date Category Hydroxyzine Hcl 25 Mg Tablet 1 Tab PO TID 06/21/18 Reported Impression . 1. The patient with a history of bilateral recurrent pneumothorax. He underwent left-sided VAT with apical wedge resection and mechanical pleurodesis 2 months ago. He now returns for a right-sided similar procedure. 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 2. Abnormal chest x-ray with stable right apical pneumothorax. Chest tube is patent with persistent air leak. 3. History of tobaccoism and marijuana use. 4. History of psychosis and bipolar disorder. Plan . 1. Continue present chest tube management per Dr. Cazares. Chest tube is placed to suction. 2. Follow chest x-rays. 3. P.r.n. oxygen. 4. P.r.n. bronchodilators. 5. We will follow along with you.May need a while for lung to re-expand CASE LAMAR MD Jun 30, 2018 10:07
[2018-06-30 11:14] VITALS: BP 129/63
[2018-06-30 15:00] VITALS: BP 135/63
--- NOTE | 2018-06-30 15:25 | RAD ---
Portable chest, 06/30/2018, 3:06 PM: HISTORY: Recheck chest tube and pneumothorax Comparison is made to a study from earlier the same day. The right chest tube remains in place. The the right apical pneumothorax has decreased slightly in size. The left chest remains clear. No pleural fluid is seen. The heart size and pulmonary vascularity are normal. No new abnormality is detected. IMPRESSION: Interval decrease in size of the small right apical pneumothorax. Electronically signed by: Sheng Rosario MD (06/30/2018 3:22 PM) [facility]
[2018-06-30 18:51] VITALS: BP 125/75
[2018-06-30] MEDS: ZOLPIDEM 5 MG TABLET. PO PRN (21:33)
[2018-06-30 23:15] VITALS: BP 137/84
[2018-07-01] MEDS: oxyCODONE/APAP 5/325 1 TAB TABLET PO PRN ×4 (02:55→20:02)
[2018-07-01 03:00] VITALS: BP 136/76
[2018-07-01 07:00] VITALS: BP 118/80
--- NOTE | 2018-07-01 07:16 | PDOC ---
PULMONARY PROGRESS NOTES Subjective no soa, no cough + air leak Vitals Vital Signs Date Time Temp Pulse Resp B/P (MAP) Pulse Ox O2 Delivery O2 Flow Rate FiO2 07/01/18 03:55 20 Room Air 07/01/18 03:00 97.8 81 136/76 (96) 97 97.8 06/30/18 16:07 6.0 ROS: No Nausea General: Alert, No acute distress HEENT: Other (nc at perrl nose throat clear) Lungs: Crackles, Other (r ct, ) Cardiovascular: S1, S2 Abdomen: Soft, Non-tender Neuro Exam: Alert, Oriented Extremities: No Edema Skin: Warm Labs Laboratory Tests Test 06/30/18 03:30 White Blood Count 13.2 x10^3/uL (4.0-11.0) Red Blood Count 4.19 x10^6/uL (4.30-5.70) Hemoglobin 13.1 g/dL (13.0-17.5) Hematocrit 38.9 % (39.0-53.0) Mean Corpuscular Volume 93 fL (79-100) Mean Corpuscular Hemoglobin 31 pg (25-35) Mean Corpuscular Hemoglobin Concent 34 g/dL (31-37) Red Cell Distribution Width 13.4 % (11.5-14.5) Platelet Count 297 x10^3/uL (140-400) Sodium Level 139 mmol/L (136-145) Potassium Level 4.0 mmol/L (3.5-5.1) Chloride Level 102 mmol/L (98-107) Carbon Dioxide Level 27 mmol/L (21-32) Anion Gap 10 (6-14) Blood Urea Nitrogen 11 mg/dL (8-26) Creatinine 0.8 mg/dL (0.7-1.3) Estimated GFR (Cockcroft-Gault) 111.3 Glucose Level 95 mg/dL (70-99) Calcium Level 9.6 mg/dL (8.5-10.1) Medications Active Scripts Medications Dose Route/Sig Max Daily Dose Days Date Category Hydroxyzine Hcl 25 Mg Tablet 1 Tab PO TID 06/21/18 Reported Comments cxr reviewed, Slight interval increase in size of the small right apical pneumothorax. Impression . 1. The patient with a history of bilateral recurrent pneumothorax. He underwent left-sided VAT with apical wedge resection and mechanical pleurodesis 2 months ago. He now returns for a right-sided similar procedure. 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 2. Abnormal chest x-ray with stable right apical pneumothorax. 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 3. History of tobaccoism and marijuana use. 4. History of psychosis and bipolar disorder. Plan . 1. Continue present chest tube management per Dr. Cazares. cont Chest tube on suction. 2. Follow chest x-rays. 3. oxygen titration. 4. P.r.n. bronchodilators. 5. cont pepcid 6. start lovenox for dvt prophylaxis if ok w thoracic surgery discussed w pt KIRT MOSER MD Jul 01, 2018 07:16
--- NOTE | 2018-07-01 08:18 | RAD ---
Portable chest, 07/01/2018: HISTORY: Postop evaluation with pneumothorax Comparison is made to yesterday's study at 3:06 PM. The right chest tube is unchanged in position. There is a small ongoing right apical pneumothorax which appears to have increased slightly in size. There is mild residual chest wall emphysema on the right. Surgical sutures are again noted in both upper lobes. No significant pulmonary infiltrate is seen. There is no evidence of pleural fluid. The heart size is normal. IMPRESSION: The small ongoing right apical pneumothorax has increased slightly in size since yesterday afternoon. Electronically signed by: Sheng Rosario MD (07/01/2018 8:14 AM) [facility]
[2018-07-01] MEDS: DOCUSATE SODIUM 100 MG CAPSULE. PO SCH ×2 (08:37→20:03)
[2018-07-01] MEDS: FAMOTIDINE 20 MG TABLET. PO SCH ×2 (08:37→20:02)
[2018-07-01] MEDS: hydrOXYzine PAMOATE 25 MG CAPSULE PO SCH ×3 (08:37→20:02)
[2018-07-01] MEDS: SENNOSIDES/DOCUSATE 8.6/50MG TABLET. PO SCH ×2 (08:37→20:03)
[2018-07-01] MEDS: HEPARIN PF for SUB-Q USE 5,000 UNIT/0.5 ML VIAL. SQ SCH (08:38)
[2018-07-01] MEDS: MORPHINE SULFATE 2 MG/ML DISP.SYRIN. IV PRN ×2 (09:37→21:14)
--- NOTE | 2018-07-01 10:17 | RAD ---
Portable chest, 07/01/2018, 9:50 AM: HISTORY: Increasing shortness of breath, pneumothorax Comparison is made to a study from earlier in the day. The right chest tube remains in place. The right apical pneumothorax appears to have increased slightly in size. No pulmonary infiltrate is seen. There is no evidence of pleural fluid. IMPRESSION: Slight interval increase in size of the small right apical pneumothorax. Electronically signed by: Sheng Rosario MD (07/01/2018 10:14 AM) [facility]
[2018-07-01 11:00] VITALS: BP 122/82
[2018-07-01] MEDS: ENOXAPARIN 40 MG/0.4 ML SYRINGE. SQ SCH (11:00)
--- NOTE | 2018-07-01 13:44 | PDOC ---
Progress Note Subjective Subjective Air leak persits. CXR possible inrease in apical PTX. Very anxious ROS ROS No nausea No vomiting No pain No rash Vital Sign Vital Signs Vital Signs Date Time Temp Pulse Resp B/P (MAP) Pulse Ox O2 Delivery O2 Flow Rate FiO2 07/01/18 11:00 99.0 73 22 122/82 (95) 97 Room Air 99.0 06/30/18 16:07 6.0 Physical Exam PHYSICAL EXAM GENERAL: NAD, Alert HEENT: PERR NECK: Supple, LUNGS: Clear; mildly diminished on right; right CT with air leak on suction HEART: S1S2, no gallop, no murmur ABD: Soft, NT, no organomegaly, no rebound EXT: No edema, no cyanosis TASTE TESTER: Alert, oriented x 3, no focal neurologic deficit SKIN: No rash IV: no redness or drainage Objective Assessment POD#3, s/p R VATS apical wedge resection and mechanical pleurodesis Air leak persits. CXR possible inrease in apical PTX. Very anxious Plan Plan of Care Needs to stay on -20mmHg suction at all times-I did decrease the wall suction by 10 Given friability of lungs/emphysema, it will take time for his air leak to heal. This was an issue when we did his L VATS If air leak persists into next week, will consider transfer to [place] for endobronchial valve TOBY MG MD Jul 01, 2018 13:44
[2018-07-01 15:00] VITALS: BP 116/76
[2018-07-01 18:42] VITALS: BP 120/79
[2018-07-01] MEDS: ZOLPIDEM 5 MG TABLET. PO PRN (21:39)
[2018-07-01 22:40] VITALS: BP 133/85
[2018-07-02 03:40] VITALS: BP 121/83
[2018-07-02] MEDS: oxyCODONE/APAP 5/325 1 TAB TABLET PO PRN ×2 (03:55→08:38)
[2018-07-02 07:45] VITALS: BP 129/83
--- NOTE | 2018-07-02 08:10 | PDOC ---
PULMONARY PROGRESS NOTES Subjective has soa, no cough, irritated + air leak Vitals Vital Signs Date Time Temp Pulse Resp B/P (MAP) Pulse Ox O2 Delivery O2 Flow Rate FiO2 07/02/18 07:45 98.9 88 18 129/83 (98) 99 Room Air 98.9 07/01/18 20:02 6.0 ROS: No Nausea General: Alert, No acute distress HEENT: Other (nc at perrl nose throat clear) Lungs: Crackles, Other (r ct, ) Cardiovascular: S1, S2 Abdomen: Soft, Non-tender Neuro Exam: Alert, Oriented Extremities: No Edema Skin: Warm Medications Active Scripts Medications Dose Route/Sig Max Daily Dose Days Date Category Hydroxyzine Hcl 25 Mg Tablet 1 Tab PO TID 06/21/18 Reported Comments cxr reviewed, Slight interval increase in size of the small right apical pneumothorax. Impression . 1. The patient with a history of bilateral recurrent pneumothorax. He underwent left-sided VAT with apical wedge resection and mechanical pleurodesis 2 months ago. He now returns for a right-sided similar procedure. 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 2. Abnormal chest x-ray with stable right apical pneumothorax. 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 3. History of tobaccoism and marijuana use. 4. History of psychosis and bipolar disorder. Plan . 1. Continue present chest tube management per Dr. Cazares. cont Chest tube on suction. 2. Follow chest x-rays. Slight interval increase in size of the right pneumothorax. will discuss w thoracic surgery, suction was decreased yesterday 3. oxygen titration. 4. P.r.n. bronchodilators. 5. cont pepcid 6. lovenox for dvt prophylaxis if ok w thoracic surgery discussed w pt KIRT MOSER MD Jul 02, 2018 08:10
[2018-07-02] MEDS: SENNOSIDES/DOCUSATE 8.6/50MG TABLET. PO SCH ×2 (08:37→20:41)
[2018-07-02] MEDS: DOCUSATE SODIUM 100 MG CAPSULE. PO SCH ×2 (08:37→20:41)
[2018-07-02] MEDS: FAMOTIDINE 20 MG TABLET. PO SCH ×2 (08:37→20:41)
[2018-07-02] MEDS: hydrOXYzine PAMOATE 25 MG CAPSULE PO SCH ×3 (08:37→20:41)
--- NOTE | 2018-07-02 09:05 | RAD ---
Portable chest, 07/02/2018: HISTORY: Follow-up postop pneumothorax Comparison is made to yesterday's study at 9:50 AM. The right chest tube is unchanged in position. There has been slight interval increase in size of right-sided pneumothorax. It is estimated at 25 percent in volume. The heart size is normal. The left chest remains clear. No pleural fluid is evident. IMPRESSION: Slight interval increase in size of the right pneumothorax. Electronically signed by: Sheng Rosario MD (07/02/2018 9:01 AM) [facility]
[2018-07-02] MEDS: MORPHINE SULFATE 2 MG/ML DISP.SYRIN. IV PRN (10:07)
[2018-07-02] MEDS: ENOXAPARIN 40 MG/0.4 ML SYRINGE. SQ SCH (11:00)
[2018-07-02 11:07] VITALS: BP 139/98
--- NOTE | 2018-07-02 11:34 | EKG ---
[facility] [address] [place] [address] Test Date: 2018-07-02 Test Time: 11:28:13 Pat Name: YAIR HARVEY Department: Room: 206 1 Gender: M Collections Associate: ELAINE : 1985 Requested By: TOBY MG Order Number: [id number] Reading MD: Measurements Intervals [place] Rate: 78 P: 73 KS: 152 QRS: 88 QRSD: 86 T: 52 QT: 360 QTc: 414 Interpretive Statements SINUS RHYTHM QRS(T) CONTOUR ABNORMALITY CONSIDER ANTEROSEPTAL MYOCARDIAL DAMAGE POSSIBLY ABNORMAL ECG RI6.01 No previous ECG available for comparison
[2018-07-02] MEDS: KETOROLAC 15 MG/ML VIAL. IV SCH ×2 (12:10→18:14)
--- NOTE | 2018-07-02 14:20 | RAD ---
Portable chest, 07/02/2018: HISTORY: Shortness of breath, chest tube follow-up Comparison is made to a study of earlier the same day at 8:06 AM. The right chest tube is unchanged in position. The right-sided pneumothorax has increased in size. There is now extension laterally into the right lateral costophrenic angle. There is mild underlying right perihilar atelectasis. The left lung is clear. IMPRESSION: Enlarging moderate sized right pneumothorax. Electronically signed by: Sheng Rosario MD (07/02/2018 2:16 PM) [facility]
[2018-07-02 15:12] VITALS: BP 135/68
[2018-07-02 19:29] VITALS: BP 125/82
[2018-07-02] MEDS: ZOLPIDEM 5 MG TABLET. PO PRN (20:44)
[2018-07-02 22:25] VITALS: BP 125/70
[2018-07-03] MEDS: KETOROLAC 15 MG/ML VIAL. IV SCH ×3 (00:26→12:07)
[2018-07-03 03:02] VITALS: BP 123/59
[2018-07-03 07:00] VITALS: BP 126/73
--- NOTE | 2018-07-03 08:30 | RAD ---
Single view of the chest. 07/03/2018 7:00 AM Indication: POST VATS APICAL WEDGE RESECTION
PLEURODESIS Comparison: Chest radiograph, yesterday Findings: Right thoracostomy tube is unchanged in position. Right pneumothorax is unchanged in size. Postsurgical changes to the bilateral lung apices noted. No significant effusion is seen. Heart size is normal. No acute osseous changes are identified in the interim. Subcutaneous emphysema noted along the right lateral chest wall, similar to prior study. IMPRESSION: Similar appearance of right pneumothorax with thoracostomy tube in place. Otherwise stable radiographic appearance of the chest. Electronically signed by: Rolando Willis MD (07/03/2018 8:26 AM) [facility]
--- NOTE | 2018-07-03 09:07 | PATHOLOGY ---
[facility] Accession Number: [id number] . 01 Material submitted: . RIGHT UPPER LOBE WEDGE . 01 Clinical history: . Recurrent pneumothorax . 02 Diagnosis: Segments of lung tissue, right upper lobe wedge biopsies: - Subpleual emphysematous changes with subpleural blebs and focal pleural and subpleural interstitial fibrosis. (JPM:melissa; 06/30/2018) QMS/07/03/2018 . 02 Electronically signed: . Tico Saldaña MD, Pathologist NPI- [id number] . 01 Gross description: . The specimen is received in formalin, labeled "Farhan Carr and right upper lobe wedge", are two wedges of lung tissue, the larger measuring 9.7 x 2.7 x 1.5 cm and weighing 20 g (wedge #1) with a linear staple line measuring 11.5 cm in length with an average 0.2 cm width, and a smaller segment measuring 6.0 x 1.5 x 0.5 cm and weighing 2 g (wedge #2) with a linear staple line measuring 6.0 cm in length with an average 0.2 cm width. The staple lines are removed and the underlying parenchyma is inked as follows: wedge #1 = blue, and wedge #2 = green. The pleura is west-pink, wrinkled and contains several collapsed blebs. The lung parenchyma is spongy and hemorrhagic. Mud Jack Nozzleman sections are submitted in A1-A4. (A1-A3 = wedge #1 and A4 = wedge #2) (SWS; 06/29/2018) SHS/SHS . 02 Pathologist provided ICD-10: J43.9, J84.10 . 02 CPT . 793771 Performed at: [address], [place], [place] [id number] MD Antoine Walter MD Phone: [phone] Performed at: [address] [id number] MD Tico Saldaña MD Phone: [phone]
[2018-07-03] MEDS: FAMOTIDINE 20 MG TABLET. PO SCH (09:38)
[2018-07-03] MEDS: SENNOSIDES/DOCUSATE 8.6/50MG TABLET. PO SCH (09:38)
[2018-07-03] MEDS: hydrOXYzine PAMOATE 25 MG CAPSULE PO SCH ×2 (09:38→14:00)
[2018-07-03] MEDS: DOCUSATE SODIUM 100 MG CAPSULE. PO SCH (09:38)
[2018-07-03 10:44] VITALS: BP 128/83
[2018-07-03] MEDS: ENOXAPARIN 40 MG/0.4 ML SYRINGE. SQ SCH (11:00)
--- NOTE | 2018-07-03 11:43 | PDOC ---
PULMONARY PROGRESS NOTES Subjective has soa, no cough, very depressed + air leak Vitals Vital Signs Date Time Temp Pulse Resp B/P (MAP) Pulse Ox O2 Delivery O2 Flow Rate FiO2 07/03/18 10:44 98.2 79 18 128/83 (98) 100 Room Air 98.2 07/02/18 11:07 2.0 ROS: No Nausea General: Alert, No acute distress HEENT: Other (nc at perrl nose throat clear) Lungs: Other (r ct, ) Cardiovascular: S1, S2 Abdomen: Soft, Non-tender Neuro Exam: Alert, Oriented Extremities: No Edema Skin: Warm Medications Active Scripts Medications Dose Route/Sig Max Daily Dose Days Date Category Hydroxyzine Hcl 25 Mg Tablet 1 Tab PO TID 06/21/18 Reported Comments cxr reviewed, moderate right apical pneumothorax. Impression . 1. The patient with a history of bilateral recurrent pneumothorax. He underwent left-sided VAT with apical wedge resection and mechanical pleurodesis 2 months ago. He now returns for a right-sided similar procedure. 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 Abnormal chest x-ray with right apical pneumothorax. 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 3. History of tobaccoism and marijuana use. 4. History of psychosis and bipolar disorder. Plan . 1. d/w Dr. Cazares. cont Chest tube on suction.Persistent air leak, PTX. lung likely stuck up post pleurodesis. would benefit from Endobronchial valve 2. will call [place] and arrange transfer 3. oxygen titration. 4. P.r.n. bronchodilators. 5. cont pepcid discussed w pt d/w DR BRANHAM AT [facility]. HE AGREES TO TRANSFER CASE LAMAR MD Jul 03, 2018 11:42
--- NOTE | 2018-07-03 13:06 | PDOC ---
Progress Note Subjective Subjective Air leak persits. CXR possible inrease in apical PTX. 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 CXR possible inrease in apical PTX. Very anxious Plan Plan of Care Plan to transfer to [facility] for endobronchial valve which will take care of air leak Discussed with Dr Sales, who will facilitate transfer to [place]. Keep suction for now TOBY MG MD Jul 03, 2018 13:06
[2018-07-03] MEDS ORDERED: OXYC1TAB7 PO (13:52)
[2018-07-03] MEDS ORDERED: FAMO20TA5 PO (13:52)
[2018-07-03] MEDS ORDERED: SENN-22 PO (13:52)
--- NOTE | 2018-07-03 14:05 | PDOC3 ---
*Discharge Summary* Date of Admission: Jun 28, 2018 Date of Discharge: Jul 03, 2018 Admitting Diagnosis 1. recurrent right pneumothorax 2. anxiety and depression 3. bipolar disorder 4. psychosis 5. addictive personality 6. previous recurrent left pneumothorax with prior left VATS, wedge resection and pleurodesis 7. COPD 8. seizure disorder Final Diagnosis 1. recurrent right pneumothorax; s/p right VATS with wedge resection X 2 and mechanical pleurodesis; persistent air leak post-operatively 2. anxiety and depression 3. bipolar disorder 4. psychosis 5. addictive personality 6. previous recurrent left pneumothorax with prior left VATS, wedge resection and pleurodesis 7. COPD 8. seizure disorder CONSULTS Pulmonology - Dr. Shayne Sales Procedures 06/28/2018: Right Video-Assisted thoracoscopy, right upper lobe wedge resection x 2, mechanical pleurodesis Brief Hospital Course Mr. Carr is a 32 old male with a history of recurrent spontaneous pneumothorax and previous left VATS with wedge resection and pleurodesis. Now with right sided pneumothorax and underwent right VATS with wedge resection X 2 and mechanical pleurodesis on 06/28/2018. Persistent air leak in chest tube since surgery and now with question of increased pneumothorax. To transfer to [facility] for endobronchial valve placement with pulmonology there. Disposition/Orders: D/C to Another Facility CONDITION AT DISCHARGE: Stable Diet: Cardiac Home Meds Active Scripts Oxycodone Hcl/Acetaminophen (OXYCODONE-ACETAMINOPHEN 5-325) 1 Each Tablet, 1-2 TAB PO PRN Q4-6HRS PRN for MODERATE PAIN, SEVERE PAIN, #15 TAB Prov:ZAHIRA DON APRN 07/03/18 Sennosides/Docusate Sodium (SENNA-TIME S TABLET) 1 Each Tablet, 1 TAB PO BID for constipation with narcotics for 10 Days, #20 TAB 0 Refills Prov:ZAHIRA DON APRN 07/03/18 Famotidine (FAMOTIDINE) 20 Mg Tablet, 20 MG PO BID for 10 Days, #20 TAB 0 Refills Prov:ZAHIRA DON APRN 07/03/18 Reported Medications Hydroxyzine Hcl (HYDROXYZINE HCL) 25 Mg Tablet, 1 TAB PO TID, #30 TAB 06/21/18 Scheduled Famotidine (Famotidine), 20 MG PO BID Hydroxyzine Hcl (Hydroxyzine Hcl), 1 TAB PO TID, (Reported) Sennosides/Docusate Sodium (Senna-Time S Tablet), 1 TAB PO BID Scheduled PRN Oxycodone Hcl/Acetaminophen (Oxycodone-Acetaminophen 5-325), 1-2 TAB PO PRN Q4- 6HRS PRN for MODERATE PAIN, SEVERE PAIN Scripts Oxycodone Hcl/Acetaminophen (OXYCODONE-ACETAMINOPHEN 5-325) 1 Each Tablet 1-2 TAB PO PRN Q4-6HRS PRN for MODERATE PAIN, SEVERE PAIN, #15 TAB Prov: ZAHIRA DON APRN 07/03/18 Sennosides/Docusate Sodium (SENNA-TIME S TABLET) 1 Each Tablet 1 TAB PO BID for constipation with narcotics for 10 Days, #20 TAB 0 Refills Prov: ZAHIRA DON APRN 07/03/18 Famotidine (FAMOTIDINE) 20 Mg Tablet 20 MG PO BID for 10 Days, #20 TAB 0 Refills Prov: ZAHIRA DON APRN 07/03/18 FOLLOW UP APPOINTMENT: has scheduled appointment for follow up with Dr. Leena Myers at the end of June PCP 7-10 days after discharge Time Spent Total time spent with patient [] minutes for coordination of care, counseling, and education. ZAHIRA DON APRN Jul 03, 2018 14:05
[2018-07-03 15:10] VITALS: BP 134/79
[2018-07-03] MEDS: oxyCODONE/APAP 5/325 1 TAB TABLET PO PRN (15:47)
== END 2018-07-03 18:38 | disposition short-term general hospital (02) | DRG 164 ==
LOC: OPSVCIP 09:22 → 2 NORTH 15:30
PROVIDERS: ADMIT Thoracic Surgery (Cardiothoracic Vascular Surgery); ATTEND Thoracic Surgery (Cardiothoracic Vascular Surgery)
PROC: 0B5N4ZZ Destruction of Right Pleura, Percutaneous Endoscopic Approach (ICD-10-PCS; 2018-06-28)
PROC: 0BBC4ZZ Excision of Right Upper Lung Lobe, Percutaneous Endoscopic Approach (ICD-10-PCS; principal; 2018-06-28 11:00)
DX: J93.83 Other pneumothorax (principal); Z68.1 Body mass index [BMI] 19.9 or less, adult; J44.9 Chronic obstructive pulmonary disease, unspecified; F12.90 Cannabis use, unspecified, uncomplicated; F29 Unspecified psychosis not due to a substance or known physiological condition; F31.9 Bipolar disorder, unspecified; F41.9 Anxiety disorder, unspecified; G40.909 Epilepsy, unspecified, not intractable, without status epilepticus; J93.82 Other air leak; Z87.891 Personal history of nicotine dependence; Z88.6 Allergy status to analgesic agent; Z88.1 Allergy status to other antibiotic agents; Z88.8 Allergy status to other drugs, medicaments and biological substances; Z91.018 Allergy to other foods
CPT/HCPCS: 36415; 71045; 80048; 85027; 86850; 86900; 86901; 88307; 93005; A7015; J0690; J1100; J1885; J2001; J2250; J2270; J2405; J2704; J2710; J3010; J3490; J7120; Q0177; S0028

== ENCOUNTER 2018-07-07 10:31 | Inpatient (IN) | payer OTHER ==
[~2018-07-07] VITALS: Ht 172.7 cm; Wt 55.9 kg
[~2018-07-07 10:31] MED LIST changes: +FAMO20TA5 PO; -IV RINGERS,LACTATED 1000ML 1,000 ML IV SCH; -LIDOCAINE 1% PF 2 ML VIAL. ID PRN; -MORPHINE SULFATE 2 MG/ML DISP.SYRIN. IV PRN; -ONDANSETRON PF 4 MG/2 ML VIAL. IV PRN; +OXYC1TAB7 PO; -PROCHLORPERAZINE 10 MG/2 ML VIAL. IV PRN; +SENN-22 PO; -fentaNYL PF VIAL 100 MCG/2 ML VIAL IV PRN
[2018-07-07] MEDS ORDERED: 0.9 % SODIUM CHLORIDE 3ML DISP.SYRIN. IV PRN (13:00)
[2018-07-07] MEDS ORDERED: ZOLP5TAB PO (13:50)
[2018-07-07] MEDS ORDERED: DOCU-109 PO (13:50)
[2018-07-07] MEDS ORDERED: ALBU2.5V14 NEB (13:50)
[2018-07-07] MEDS: DOCUSATE SODIUM 100 MG CAPSULE. PO SCH (14:00)
[2018-07-07] MEDS: SENNOSIDES/DOCUSATE 8.6/50MG TABLET. PO SCH ×2 (14:00→19:48)
[2018-07-07] MEDS: FAMOTIDINE 20 MG TABLET. PO SCH ×2 (14:00→19:48)
[2018-07-07] MEDS ORDERED: oxyCODONE/APAP 5/325 1 TAB TABLET PO PRN (14:15)
[2018-07-07 14:18] VITALS: BP 125/79
[2018-07-07] MEDS: ALBUTEROL SULFATE 2.5 MG/3 ML NEBU. NEB SCH ×2 (15:03→20:00)
[2018-07-07] MEDS: hydrOXYzine PAMOATE 25 MG CAPSULE PO SCH ×2 (15:29→19:48)
--- NOTE | 2018-07-07 15:30 | PDOC1 ---
History and Physical Date of Admission Date of Admission DATE: 07/07/18 TIME: 15:21 Identification/Chief Complaint Chief Complaint S/p R VATS Source Source: Chart review, Patient History of Present Illness History of Present Illness The patient is a 32-year-old male who last week I performed a right VATS with an extensive apical wedge resection and mechanical pleurodesis for recurrent pneumothorax. His postoperative course was complicated by a very large and persistent air leak with inability to keep the lung expanded. Owing to the fragility and poor quality of his lung parenchyma and severe pulmonary emphysema , I decided to send him to [facility] for an endobronchial valve which could potentially aid in sealing the air leak. The procedure was performed 2 days ago. The air leak has significantly improved, and the right lung is now is fully expanded, but there still is a moderate air leak. An attempt was made yesterday at [facility] to take the chest tube off suction, but the lung did not stay up. I asked that the patient be sent back to [facility] for continuation of his care. A chest x-ray today shows that the right lung is fully expanded. I previously performed a left VATS, wedge resection and pleurodesis 2 months ago. His postoperative course then was again, located by prolonged air leak, which eventually healed. Past Medical History Cardiovascular: No pertinent hx Pulmonary: COPD, Other CENTRAL NERVOUS SYSTEM: Seizure GI: No pertinent hx Heme/Onc: No pertinent hx Psych: Anxiety, Addictions, Bipolar, Depression, Psychosis Rheumatologic: No pertinent hx Infectious disease: No pertinent hx Renal/: No pertinent hx Endocrine: No pertinent hx Past Surgical History Past Surgical History: Other Family History Family History: No Significant Social History ALCOHOL: rare Current Medications Current Medications Current Medications Sodium Chloride (Normal Saline Flush 3ml) 3 ml QSHIFT PRN IV AFTER MEDS AND BLOOD DRAWS; Start 07/07/18 at 13:00 Docusate Sodium (Colace) 100 mg DAILY PO ; Start 07/07/18 at 14:00 Famotidine (Pepcid) 20 mg BID PO ; Start 07/07/18 at 14:00 Oxycodone/ Acetaminophen (Percocet 5/325) 1-2 tabs every 6 hrs PRN Q6HRS PRN PO MODERATE PAIN, SEVERE PAIN Last administered on 07/07/18at 14:13; Start at 14:15 Senna/Docusate Sodium (Senna Plus) 1 tab BID PO ; Start 07/07/18 at 14:00 Zolpidem Tartrate (Ambien) 5 mg PRN QHS PRN PO INSOMNIA; Start 07/07/18 at 14: 15 Non-Formulary Medication (Albuterol Sulfate (Albuterol Sulfate Conc Neb Soln)) 2.5 mg QID NEB ; Start 07/07/18 at 17:00; Status UNV Hydroxyzine Pamoate (Vistaril) 25 mg TID PO ; Start 07/07/18 at 14:15 Albuterol Sulfate (Ventolin Neb Soln) 2.5 mg RTQID NEB Last administered on at 15:03; Start 07/07/18 at 16:00 Active Scripts Active Oxycodone-Acetaminophen 5-325 (Oxycodone Hcl/Acetaminophen) 1 Each Tablet 1-2 Tab PO PRN Q4-6HRS PRN Senna-Time S Tablet (Sennosides/Docusate Sodium) 1 Each Tablet 1 Tab PO BID 10 Days Famotidine 20 Mg Tablet 20 Mg PO BID 10 Days Reported Albuterol Sulfate Conc Neb Soln (Albuterol Sulfate) 2.5 Mg/0.5 Ml Vial.neb 2.5 Mg NEB QID Ambien (Zolpidem Tartrate) 5 Mg Tablet 5 Mg PO HS PRN Colace (Docusate Sodium) 100 Mg Capsule 100 Mg PO DAILY Hydroxyzine Hcl 25 Mg Tablet 1 Tab PO TID Allergies Allergies: Coded Allergies: aspartame (Verified Allergy, Severe, SUGAR SUBSTITUTES = THROAT SWELLS, 06/28/18) spinach (Verified Allergy, Severe, 06/28/18) throat swelling diazepam (Verified Allergy, Intermediate, 06/28/18) per pt haloperidol (Verified Adverse Reaction, Severe, 06/28/18) hyperthermia lorazepam (Verified Adverse Reaction, Severe, 06/28/18) ativan causes patient to become very violent alprazolam (Verified Adverse Reaction, Intermediate, 06/28/18) irritability, "psychotic break" per patient bupropion (Verified Adverse Reaction, Intermediate, 06/28/18) anxiety fluticasone (Verified Adverse Reaction, Intermediate, 06/28/18) irritation,nasal bleeding ROS General: No: Chills, Night Sweats, Fatigue, Malaise, Appetite PSYCHOLOGICAL ROS: No: Anxiety, Behavioral Disorder, Concentration difficultie , Decreased libido, Depression, Disorientation, Hallucinations, Hostility, Irritablity, Memory difficulties, Mood Swings, Obsessive thoughts, Physical abuse, Sexual abuse, Sleep disturbances, Suicidal ideation Eyes: No Blurry vision, No Decreased vision, No Double vision, No Dry eyes, No Excessive tearing, No Eye Pain, No Itchy Eyes, No Loss of vision, No Photophobia , No Scotomata, No Uses contacts, No Uses glasses, No Other HEENT: No: Heacaches, Visual Changes, Hearing change, Nasal congestion, Nasal discharge, Oral lesions, Sinus pain, Sore Throat, Epistaxis, Sneezing, Snoring, Tinnitus, Vertigo, Vocal changes ALLERGY AND IMMUNOLOGY: No: Hives, Insect Bite Sensitivity, Itchy/Watery Eyes, Nasal Congestion, Post Nasal Drip, Seasonal Allergies Hematological and Lymphatic: No: Bleeding Problems, Blood Clots, Blood Transfusions, Brusing, Night Sweats, Pallor, Swollen Lymph Nodes ENDOCRINE: No: Breast Changes, Galactorrhea, Hair Pattern Changes, Hot Flashes , Malaise/lethargy, Mood Swings, Palpitations, Polydipsia/polyuria, Skin Changes , Temperature Intolerance, Unexpected Weight Changes Respiratory: No: Cough, Hemoptysis, Orthopnea, Pleuritic Pain, Shortness of breath, SOB with excertion, Sputum Changes, Stridor, Tachypnea, Wheezing Cardiovascular: No Chest Pain, No Palpitations, No Orthopnea, No Paroxysmal Noc. Dyspnea, No Edema, No Lt Headedness Gastrointestinal: No Nausea, No Vomiting, No Abdominal Pain, No Diarrhea, No Constipation, No Melena, No Hematochezia Genitourinary: No Dysuria, No Frequency, No Incontinence, No Hematuria, No Retention, No Discharge, No Urgency, No Pain, No Flank Pain Musculoskeletal: No Gait Disturbance, No Joint Pain, No Joint Stiffness, No Joint Swelling, No Muscle Pain, No Muscular Weakness, No Pain In:, No Swelling In: Neurological: No Behavorial Changes, No Bowel/Bladder ControlChng, No Confusion , No Dizziness, No Gait Disturbance, No Headaches, No Impaired Coord/balance, No Memory Loss, No Numbness/Tingling, No Seizures, No Speech Problems, No Tremors, No Visual Changes, No Weakness Skin: No Dry Skin, No Eczema, No Hair Changes, No Lumps, No Mole Changes, No Mottling, No Nail Changes, No Pruritus, No Rash, No Skin Lesion Changes, No Acne Physical Exam General: Alert, Oriented X3, No acute distress HEENT: Atraumatic, PERRLA Lungs: Clear to auscultation Heart: S1S2, RRR, no murmurs Abdomen: Soft, No tenderness Rectal Exam: deferred Extremities: Normal pulses Skin: No significant lesion Neuro: Normal gait, Normal speech, Strength at 5/5 X4 ext, Normal tone, Sensation intact, Cranial nerves 3-12 NL Psych/Mental Status: Mental status NL Vitals Vitals Vital Signs Date Time Temp Pulse Resp B/P (MAP) Pulse Ox O2 Delivery O2 Flow Rate FiO2 07/07/18 15:03 100 Room Air 07/07/18 14:18 98.6 82 14 125/79 (94) 98.6 VTE Prophylaxis Ordered VTE Prophylaxis Devices: Yes VTE Pharmacological Prophylaxi: Yes Assessment/Plan Assessment/Plan 32-year-old male with a history of severe emphysematous lungs and recurrent pneumothoraces, status post right VATS extensive right upper lobe wedge resection and mechanical pleurodesis. Postoperative course has been complicated by significant and prolonged air leak. Endobronchial valves were placed at [facility], with significant improvement in the air leak. The lung is now fully expanded. I previously performed a left VATS, wedge resection and pleurodesis 2 months ago. His postoperative course then was again, located by prolonged air leak, which eventually healed. Now that the right lung is fully expanded, and the air leak is significantly improved, I think there is a much better chance of the air leak healing on its own. Ideally I would like to avoid reoperative surgery owing to the poor quality of his lung parenchyma. I explained to the patient that it may take several days for his air leak to heal. He understands this. Will keep chest tube to -20 cm H2O suction over the weekend. Depending on the air leak, we will attempt to take chest tube off suction at the beginning of next week. If the lung stays expanded off suction, he could potentially be discharged home with a pneumostat. TOBY MG MD Jul 07, 2018 15:30
[2018-07-07] MEDS ORDERED: ALBUTEROL SULFATE 2.5 MG/3 ML NEBU. NEB PRN (16:30)
[2018-07-07] MEDS ORDERED: NON FORMULARY ITEM (Albuterol Sulfate (Albuterol Sulfate Conc Neb Soln) 2.5 MG) NEB SCH (17:00)
--- NOTE | 2018-07-07 18:00 | RAD ---
PORTABLE CHEST 1V History: PNEUMOTHORAX, CHEST TUBE. Comparison: One day earlier. Heart size: Stable Angela/mediastinum: Stable Lungs: Density at the right upper lobe is unchanged. No new infiltrate identified. Volume loss right hemithorax is stable. Pleura: No evidence of pleural effusion. Pneumothorax: Small right apical pneumothorax. The pleural margin is more difficult to define on today's study but appears similar in size. Right chest tube remains. Right subcutaneous emphysema again noted. Bones: Regional skeleton appears grossly intact. Miscellaneous: None Impression: Similar findings as earlier study. No gross change in size of right apical pneumothorax. Electronically signed by: Evgeny Chew MD (07/07/2018 5:56 PM) [id number]
[2018-07-07 19:00] VITALS: BP 145/77
[2018-07-07] MEDS: ZOLPIDEM 5 MG TABLET. PO PRN (19:48)
[2018-07-07] MEDS: oxyCODONE/APAP 5/325 1 TAB TABLET PO PRN (19:48)
[2018-07-07 23:18] VITALS: BP 144/75
[2018-07-08 07:00] VITALS: BP 135/75
[2018-07-08] MEDS: ALBUTEROL SULFATE 2.5 MG/3 ML NEBU. NEB SCH ×2 (08:00→11:47)
[2018-07-08 08:04] VITALS: BP 144/75
[2018-07-08] MEDS: FAMOTIDINE 20 MG TABLET. PO SCH ×2 (08:16→20:46)
[2018-07-08] MEDS: hydrOXYzine PAMOATE 25 MG CAPSULE PO SCH ×3 (08:16→20:46)
[2018-07-08] MEDS: DOCUSATE SODIUM 100 MG CAPSULE. PO SCH (08:19)
[2018-07-08] MEDS: SENNOSIDES/DOCUSATE 8.6/50MG TABLET. PO SCH ×2 (08:19→20:46)
[2018-07-08] MEDS: oxyCODONE/APAP 5/325 1 TAB TABLET PO PRN ×2 (08:20→12:44)
--- NOTE | 2018-07-08 08:38 | RAD ---
Indication:s/p R VATS apical wedge resection. Persistent air leak TECHNIQUE:Portable AP chest X-ray COMPARISON:07/07/2018 FINDINGS: Heart is normal in size. Stable position of right-sided chest tube. Focal wedge-shaped consolidation is seen in the right suprahilar lung with sutures. Trace right pleural effusion. Left lung is clear. No mediastinal shift. Significant emphysema is seen along the right lateral chest wall and supraclavicular fossae. IMPRESSION: Trace right pneumothorax with stable consolidation in the right suprahilar lung. Findings aren't significantly changed when compared to previous study. Electronically signed by: Vicente Tovar DO (07/08/2018 8:33 AM) [facility]
[2018-07-08 11:40] VITALS: BP 138/75
--- NOTE | 2018-07-08 13:27 | PDOC ---
Progress Note Subjective Subjective Doing well. Air leak slightly improved compared to yesterday. CXR right lung expanded ROS ROS No nausea No vomiting No pain No rash Vital Sign Vital Signs Vital Signs Date Time Temp Pulse Resp B/P (MAP) Pulse Ox O2 Delivery O2 Flow Rate FiO2 07/08/18 12:44 100 Room Air 07/08/18 11:40 99.0 100 18 138/75 (96) 99.0 Physical Exam PHYSICAL EXAM GENERAL: NAD, Alert HEENT: PERRL, OC/OP NECK: Supple, no JVD, no LN LUNGS: Clear HEART: S1S2, no gallop, no murmur ABD: Soft, NT, no organomegaly, no rebound EXT: No edema, no cyanosis LIGHTING FIXTURES DECORATOR: Alert, oriented x 3, no focal neurologic deficit SKIN: No rash IV: ok Objective Assessment S/p R VATS, wedge resection and mechanical pleurodesis, prolonged air leak Plan Plan of Care Will wait for air leak to heal. Now that lung is expanded, resolution of air leak is more likely to occur spontaneously Chest tube to stay on suction -[id number] at all times TOBY MG MD Jul 08, 2018 13:27
[2018-07-08] MEDS: IBUPROFEN 800 MG TABLET. PO SCH ×2 (14:00→20:46)
[2018-07-08 14:37] VITALS: BP 157/90
[2018-07-08 19:00] VITALS: BP 136/90
[2018-07-08] MEDS: ZOLPIDEM 5 MG TABLET. PO PRN (20:48)
[2018-07-08 23:00] VITALS: BP 131/73
[2018-07-09 07:00] VITALS: BP 133/74
--- NOTE | 2018-07-09 08:36 | RAD ---
Chest AP portable at 0713: Reason for examination: Post right VATS apical wedge resection. Persistent air leak. Comparison is made to previous study dated 07/08/2018. The heart size is normal. Mediastinum is unremarkable. Lung you continue show a focal wedge-shaped consolidation right suprahilar lung containing sutures. This is unchanged. There is a small pneumothorax still present with the right chest tube in place. This does not show significant change. The left lung field shows no acute process. There continues to be subcutaneous emphysema in the right chest wall which is unchanged. No acute bony abnormalities are seen. IMPRESSION: Continued presence of a right pneumothorax with chest tube in place and showing no significant change. Continued presence of some focal consolidation in the right suprahilar lung field. Continued presence of subcutaneous emphysema on the right. No significant interval change. Electronically signed by: Wendy Cast MD (07/09/2018 8:32 AM) [facility]
[2018-07-09] MEDS: IBUPROFEN 800 MG TABLET. PO SCH ×2 (08:57→20:50)
[2018-07-09] MEDS: DOCUSATE SODIUM 100 MG CAPSULE. PO SCH (08:57)
[2018-07-09] MEDS: FAMOTIDINE 20 MG TABLET. PO SCH ×2 (08:57→20:50)
[2018-07-09] MEDS: hydrOXYzine PAMOATE 25 MG CAPSULE PO SCH ×3 (08:57→20:50)
[2018-07-09] MEDS: SENNOSIDES/DOCUSATE 8.6/50MG TABLET. PO SCH ×2 (08:58→20:51)
[2018-07-09 11:00] VITALS: BP 141/81
[2018-07-09 15:00] VITALS: BP 142/72
[2018-07-09] MEDS: oxyCODONE/APAP 5/325 1 TAB TABLET PO PRN ×2 (15:50→22:11)
[2018-07-09 19:20] VITALS: BP 121/85
[2018-07-09] MEDS: ZOLPIDEM 5 MG TABLET. PO PRN (20:50)
[2018-07-09 22:50] VITALS: BP 117/74
[2018-07-10 07:00] VITALS: BP 141/65
[2018-07-10] MEDS: DOCUSATE SODIUM 100 MG CAPSULE. PO SCH (09:00)
[2018-07-10] MEDS: SENNOSIDES/DOCUSATE 8.6/50MG TABLET. PO SCH ×2 (09:00→20:51)
--- NOTE | 2018-07-10 09:05 | RAD ---
Portable chest, 07/10/2018: HISTORY: Follow-up chest tube placement Comparison is made to yesterday's study. A right chest tube remains in place, unchanged in position. There are surgical sutures in both upper lobes. There are additional surgical implants at the right hilum. There is a tiny residual pneumothorax present superolaterally on the right. It appears to have decreased slightly in size since yesterday's study. There are ongoing streaky right upper lobe opacities with volume loss. The left chest remains clear. No pleural fluid is evident. There is unchanged subcutaneous edema laterally on the right. IMPRESSION: 1. The tiny right pneumothorax has decreased slightly in size since yesterday study. 2. No other significant interval change. Electronically signed by: Sheng Rosario MD (07/10/2018 9:00 AM) [facility]
[2018-07-10] MEDS: FAMOTIDINE 20 MG TABLET. PO SCH ×2 (09:23→20:51)
[2018-07-10] MEDS: hydrOXYzine PAMOATE 25 MG CAPSULE PO SCH ×3 (09:23→20:51)
[2018-07-10] MEDS: IBUPROFEN 800 MG TABLET. PO SCH ×2 (09:24→20:53)
[2018-07-10 11:00] VITALS: BP 112/73
--- NOTE | 2018-07-10 13:05 | PDOC ---
Progress Note Subjective Subjective No new issues. Moderate air leak. CXR right lung expanded ROS ROS No nausea No vomiting No pain No rash Vital Sign Vital Signs Vital Signs Date Time Temp Pulse Resp B/P (MAP) Pulse Ox O2 Delivery O2 Flow Rate FiO2 07/10/18 11:00 98.6 100 18 112/73 (86) 99 Room Air 98.6 Physical Exam PHYSICAL EXAM GENERAL: NAD, Alert HEENT: PERRL, OC/OP NECK: Supple, no JVD, no LN LUNGS: Clear HEART: S1S2, no gallop, no murmur ABD: Soft, NT, no organomegaly, no rebound EXT: No edema, no cyanosis PRODUCT OWNER: Alert, oriented x 3, no focal neurologic deficit SKIN: No rash IV: ok Objective Assessment S/p R VATS, wedge resection and mechanical pleurodesis, prolonged air leak No new issues. Moderate air leak. CXR right lung expanded Plan Plan of Care Will wait for air leak to heal. Now that lung is expanded, resolution of air leak is more likely to occur spontaneously Chest tube to stay on suction -[id number] at all times TOBY MG MD Jul 10, 2018 13:05
[2018-07-10 15:00] VITALS: BP 131/83
[2018-07-10] MEDS: oxyCODONE/APAP 5/325 1 TAB TABLET PO PRN (18:13)
[2018-07-10 18:50] VITALS: BP 127/86
[2018-07-10] MEDS: ZOLPIDEM 5 MG TABLET. PO PRN (20:51)
[2018-07-10 22:56] VITALS: BP 117/79
[2018-07-11 07:15] VITALS: BP 127/71
--- NOTE | 2018-07-11 08:07 | PDOC ---
Progress Note Subjective Subjective No new issues. Moderate air leak persists. CXR right lung expanded ROS ROS No nausea No vomiting No pain No rash Vital Sign Vital Signs Vital Signs Date Time Temp Pulse Resp B/P (MAP) Pulse Ox O2 Delivery O2 Flow Rate FiO2 07/11/18 07:15 98.3 97 18 127/71 (89) Room Air 98.3 07/10/18 22:56 99 Physical Exam PHYSICAL EXAM GENERAL: NAD, Alert HEENT: PERRL, OC/OP NECK: Supple, no JVD, no LN LUNGS: Clear HEART: S1S2, no gallop, no murmur ABD: Soft, NT, no organomegaly, no rebound EXT: No edema, no cyanosis PIPE INSTALLER: Alert, oriented x 3, no focal neurologic deficit SKIN: No rash IV: ok Objective Assessment S/p R VATS, wedge resection and mechanical pleurodesis, prolonged air leak No new issues. Moderate air leak persists. CXR right lung expanded Plan Plan of Care Chest tube to stay on suction -[id number] at all times Will attempt water seal tomorrow If lung fails to remain expanded on water seal, will consider reoperation TOBY MG MD Jul 11, 2018 08:07
[2018-07-11] MEDS: hydrOXYzine PAMOATE 25 MG CAPSULE PO SCH ×3 (08:54→20:43)
[2018-07-11] MEDS: DOCUSATE SODIUM 100 MG CAPSULE. PO SCH (08:54)
[2018-07-11] MEDS: FAMOTIDINE 20 MG TABLET. PO SCH ×2 (08:54→20:42)
[2018-07-11] MEDS: IBUPROFEN 800 MG TABLET. PO SCH ×2 (08:54→20:43)
[2018-07-11] MEDS: SENNOSIDES/DOCUSATE 8.6/50MG TABLET. PO SCH ×2 (08:54→20:43)
--- NOTE | 2018-07-11 10:36 | RAD ---
Single view of the chest. 07/11/2018 8:52 AM Indication: STATUS POST RIGHT VATS, PNEUMOTHORAX Comparison: Chest radiograph, yesterday Findings: Right thoracostomy tube in place, grossly unchanged. Subcutaneous emphysema again noted, also grossly unchanged. Possible trace right apical pneumothorax is seen, but somewhat poorly visualized. Identified. Postsurgical changes following partial right upper lobe resection. Endobronchial valves with associated upper lobe atelectasis is similar. Postsurgical changes in the left lung apex are similar. No new focal consolidation or infiltrate is identified. No pleural effusion is seen. Heart size is normal. No acute osseous abnormality is identified. IMPRESSION: Stable radiographic appearance of chest including right thoracostomy tube and possible trace right apical pneumothorax, which is poorly visualized Electronically signed by: Rolando Willis MD (07/11/2018 10:33 AM) [id number]
[2018-07-11 11:00] VITALS: BP 118/80
[2018-07-11 15:00] VITALS: BP 125/64
[2018-07-11 19:05] VITALS: BP 149/81
[2018-07-11] MEDS: ZOLPIDEM 5 MG TABLET. PO PRN (20:43)
[2018-07-11] MEDS: oxyCODONE/APAP 5/325 1 TAB TABLET PO PRN (21:37)
[2018-07-11 23:09] VITALS: BP 148/70
[2018-07-12 07:00] VITALS: BP 131/82
--- NOTE | 2018-07-12 08:41 | RAD ---
Portable chest, 07/12/2018: HISTORY: Follow-up pneumothorax Comparison is made to yesterday's study. The right chest tube is unchanged in position. A small linear opacity projected over the right lateral costophrenic angle may be related to overlying residual chest wall emphysema. A tiny collection of pleural air cannot be entirely excluded. The previously seen superolateral right pneumothorax is no longer evident. There are unchanged streaky right upper lobe postoperative parenchymal opacities. The left chest remains clear. The heart size is normal. IMPRESSION: 1. Postoperative changes on the right. 2. No definite residual pneumothorax. Electronically signed by: Sheng Rosario MD (07/12/2018 8:38 AM) [facility]
[2018-07-12] MEDS: hydrOXYzine PAMOATE 25 MG CAPSULE PO SCH ×3 (08:47→21:12)
[2018-07-12] MEDS: IBUPROFEN 800 MG TABLET. PO SCH ×2 (08:47→21:12)
[2018-07-12] MEDS: DOCUSATE SODIUM 100 MG CAPSULE. PO SCH (08:47)
[2018-07-12] MEDS: FAMOTIDINE 20 MG TABLET. PO SCH ×2 (08:47→21:12)
[2018-07-12] MEDS: SENNOSIDES/DOCUSATE 8.6/50MG TABLET. PO SCH ×2 (08:47→21:00)
[2018-07-12] MEDS: oxyCODONE/APAP 5/325 1 TAB TABLET PO PRN ×3 (09:25→21:35)
--- NOTE | 2018-07-12 10:44 | PDOC ---
Progress Note Subjective Subjective Air leak is improving. CXR right lung expanded, apical space has resolved ROS ROS No nausea No vomiting No pain No rash Vital Sign Vital Signs Vital Signs Date Time Temp Pulse Resp B/P (MAP) Pulse Ox O2 Delivery O2 Flow Rate FiO2 07/12/18 10:29 18 Room Air 07/12/18 07:00 98.5 80 131/82 (98) 100 98.5 Physical Exam PHYSICAL EXAM GENERAL: NAD, Alert HEENT: PERRL, OC/OP NECK: Supple, no JVD, no LN LUNGS: Clear HEART: S1S2, no gallop, no murmur ABD: Soft, NT, no organomegaly, no rebound EXT: No edema, no cyanosis MEDICAL SAFETY DIRECTOR: Alert, oriented x 3, no focal neurologic deficit SKIN: No rash IV: ok Objective Assessment S/p R VATS, wedge resection and mechanical pleurodesis, prolonged air leak Air leak is improving. CXR right lung expanded, apical space has resolved Plan Plan of Care Will place on water seal today and obtain CXR TOBY MG MD Jul 12, 2018 10:44
[2018-07-12 11:00] VITALS: BP 147/66
--- NOTE | 2018-07-12 12:06 | RAD ---
Portable chest, 07/12/2018, 11:34 AM: HISTORY: Follow-up pneumothorax, waterseal check Comparison is made to the study of earlier the same day. No significant pneumothorax is seen. The right chest tube is unchanged in position. Mild streaky right upper lobe opacities persist. The left chest remains clear. IMPRESSION: No significant change since earlier in the day. Electronically signed by: Sheng Rosario MD (07/12/2018 12:03 PM) [facility]
[2018-07-12 15:03] VITALS: BP 123/72
[2018-07-12 19:15] VITALS: BP 135/72
[2018-07-12] MEDS: ZOLPIDEM 5 MG TABLET. PO PRN (21:12)
[2018-07-12 22:27] VITALS: BP 122/70
[2018-07-13 07:10] VITALS: BP 125/64
[2018-07-13] MEDS: IBUPROFEN 800 MG TABLET. PO SCH ×2 (08:37→20:56)
[2018-07-13] MEDS: FAMOTIDINE 20 MG TABLET. PO SCH ×2 (08:37→20:53)
[2018-07-13] MEDS: hydrOXYzine PAMOATE 25 MG CAPSULE PO SCH ×3 (08:37→20:53)
[2018-07-13] MEDS: oxyCODONE/APAP 5/325 1 TAB TABLET PO PRN ×3 (08:38→19:36)
--- NOTE | 2018-07-13 08:45 | RAD ---
EXAM: PORTABLE CHEST 1V DATE: 07/13/2018 8:00 AM INDICATION: s/p R VATS apical wedge resection. Persistent air leak COMPARISON: 07/12/2018 FINDINGS: Postsurgical changes of right lung resection are seen. Cardiomediastinal silhouette is grossly stable accounting for differences in positioning and technique. Right-sided parenchymal opacities are grossly stable accounting for differences in projection and technique Right chest tube and small right pneumothorax are essentially stable. Subcutaneous gas along the right flank/chest wall is again seen. IMPRESSION: Stable appearance of the right chest tube and right pneumothorax. Electronically signed by: Sal Montez MD (07/13/2018 8:42 AM) [id number]
[2018-07-13] MEDS: DOCUSATE SODIUM 100 MG CAPSULE. PO SCH (09:00)
[2018-07-13] MEDS: SENNOSIDES/DOCUSATE 8.6/50MG TABLET. PO SCH ×2 (09:00→19:38)
[2018-07-13 11:17] VITALS: BP 135/70
[2018-07-13 11:29] LABS: HEMATOCRIT 38.2 % (39.0-53.0); HEMOGLOBIN 13.2 g/dL (13.0-17.5); RED BLOOD COUNT 4.24 x10^6/uL (4.30-5.70); RED CELL DISTRIBUTION WIDTH 12.7 % (11.5-14.5)
[2018-07-13 11:34] LABS: ALBUMIN 3.2 g/dL (3.4-5.0); ALBUMIN/GLOBULIN RATIO 0.7 (1.0-1.7); CALCIUM 9.4 mg/dL (8.5-10.1); CREATININE 0.7 mg/dL (0.7-1.3); GFR 129.9; POTASSIUM 4.3 mmol/L (3.5-5.1); TOTAL BILIRUBIN 0.2 mg/dL (0.2-1.0); TOTAL PROTEIN 7.6 g/dL (6.4-8.2)
[2018-07-13 14:48] VITALS: BP 123/86
--- NOTE | 2018-07-13 15:04 | PDOC ---
Progress Note Subjective Subjective Small air leak which is improving. CXR right lung remains expanded on water seal ROS ROS No nausea No vomiting No pain No rash Vital Sign Vital Signs Vital Signs Date Time Temp Pulse Resp B/P (MAP) Pulse Ox O2 Delivery O2 Flow Rate FiO2 07/13/18 14:55 18 Room Air 07/13/18 14:48 98.0 92 123/86 (98) 98 98.0 Physical Exam PHYSICAL EXAM GENERAL: NAD, Alert HEENT: PERRL, OC/OP NECK: Supple, no JVD, no LN LUNGS: Clear HEART: S1S2, no gallop, no murmur ABD: Soft, NT, no organomegaly, no rebound EXT: No edema, no cyanosis CHEMICAL LABORATORY TECHNICIAN: Alert, oriented x 3, no focal neurologic deficit SKIN: No rash IV: ok Labs Lab Laboratory Tests Test 07/13/18 10:50 White Blood Count 10.0 x10^3/uL (4.0-11.0) Red Blood Count 4.24 x10^6/uL (4.30-5.70) Hemoglobin 13.2 g/dL (13.0-17.5) Hematocrit 38.2 % (39.0-53.0) Mean Corpuscular Volume 90 fL (79-100) Mean Corpuscular Hemoglobin 31 pg (25-35) Mean Corpuscular Hemoglobin Concent 35 g/dL (31-37) Red Cell Distribution Width 12.7 % (11.5-14.5) Platelet Count 593 x10^3/uL (140-400) Sodium Level 139 mmol/L (136-145) Potassium Level 4.3 mmol/L (3.5-5.1) Chloride Level 100 mmol/L (98-107) Carbon Dioxide Level 31 mmol/L (21-32) Anion Gap 8 (6-14) Blood Urea Nitrogen 10 mg/dL (8-26) Creatinine 0.7 mg/dL (0.7-1.3) Estimated GFR (Cockcroft-Gault) 129.9 BUN/Creatinine Ratio 14 (6-20) Glucose Level 99 mg/dL (70-99) Calcium Level 9.4 mg/dL (8.5-10.1) Total Bilirubin 0.2 mg/dL (0.2-1.0) Aspartate Amino Transf (AST/SGOT) 17 U/L (15-37) Alanine Aminotransferase (ALT/SGPT) 49 U/L (16-63) Alkaline Phosphatase 106 U/L (46-116) Total Protein 7.6 g/dL (6.4-8.2) Albumin 3.2 g/dL (3.4-5.0) Albumin/Globulin Ratio 0.7 (1.0-1.7) Objective Assessment S/p R VATS, wedge resection and mechanical pleurodesis, prolonged air leak Small air leak which is improving. CXR right lung remains expanded on water seal Plan Plan of Care Continue water seal Anticipate air leak to resolve over the next 3-4 days-will then d/c chest tube TOBY MG MD Jul 13, 2018 15:04
[2018-07-13 19:00] VITALS: BP 132/72
[2018-07-13] MEDS: ZOLPIDEM 5 MG TABLET. PO PRN (20:54)
[2018-07-13 23:00] VITALS: BP 134/76
[2018-07-14 07:00] VITALS: BP 138/78
[2018-07-14] MEDS: oxyCODONE/APAP 5/325 1 TAB TABLET PO PRN ×4 (07:06→23:54)
[2018-07-14] MEDS: IBUPROFEN 800 MG TABLET. PO SCH ×2 (08:26→20:37)
[2018-07-14] MEDS: FAMOTIDINE 20 MG TABLET. PO SCH ×2 (08:26→20:37)
[2018-07-14] MEDS: hydrOXYzine PAMOATE 25 MG CAPSULE PO SCH ×3 (08:26→20:37)
[2018-07-14] MEDS: DOCUSATE SODIUM 100 MG CAPSULE. PO SCH (08:28)
[2018-07-14] MEDS: SENNOSIDES/DOCUSATE 8.6/50MG TABLET. PO SCH ×2 (08:29→20:37)
--- NOTE | 2018-07-14 09:00 | RAD ---
Portable chest, 07/14/2018: HISTORY: Follow-up apical wedge resection with persistent pneumothorax Comparison is made to yesterday's study. The right chest tube is unchanged in position. There are surgical sutures and persistent streaky pulmonary opacities in the right upper lobe compatible with atelectasis and/or scarring. There is an apical pneumothorax which appears unchanged. Linear opacities in the medial right lower chest are less clearly defined than on yesterday's study but raise the possibility of a displaced pleural due to pneumothorax versus atelectasis or scarring. There is persistent chest wall emphysema laterally on the right. The left chest remains clear. The heart size is normal. No significant pleural fluid is seen. IMPRESSION: Persistent right pneumothorax. CT scanning would best delineate its extent, if clinically indicated. Electronically signed by: Sheng Rosario MD (07/14/2018 8:57 AM) [facility]
[2018-07-14 11:20] VITALS: BP 130/74
[2018-07-14 15:00] VITALS: BP 119/89
[2018-07-14 19:07] VITALS: BP 116/70
[2018-07-14] MEDS: ZOLPIDEM 5 MG TABLET. PO PRN (22:32)
[2018-07-14 22:34] VITALS: BP 120/61
[2018-07-15 02:48] VITALS: BP 114/60
[2018-07-15] MEDS: oxyCODONE/APAP 5/325 1 TAB TABLET PO PRN ×4 (06:35→20:50)
[2018-07-15 07:00] VITALS: BP 126/56
[2018-07-15] MEDS: hydrOXYzine PAMOATE 25 MG CAPSULE PO SCH ×3 (08:35→20:49)
[2018-07-15] MEDS: FAMOTIDINE 20 MG TABLET. PO SCH ×2 (08:35→20:49)
[2018-07-15] MEDS: SENNOSIDES/DOCUSATE 8.6/50MG TABLET. PO SCH ×3 (08:35→20:52)
[2018-07-15] MEDS: DOCUSATE SODIUM 100 MG CAPSULE. PO SCH ×2 (08:35→08:40)
[2018-07-15] MEDS: IBUPROFEN 800 MG TABLET. PO SCH ×2 (08:35→20:49)
--- NOTE | 2018-07-15 08:57 | RAD ---
EXAM: Chest, single view. HISTORY: Air leak. Wedge resection. COMPARISON: 07/14/2018 FINDINGS: A frontal view of the chest is obtained. There is stable right suprahilar opacity with architectural distortion. There is a stable superior lateral right thoracostomy tube with trace pneumothorax. There is stable soft tissue gas along the lateral right chest wall. There is a surgical anastomosis within the bilateral upper lobes. There are stable volume reduction devices overlying the right hilum and suprahilar regions. There is emphysema. IMPRESSION: 1. Stable suspected right suprahilar atelectasis or scarring with hilar and suprahilar volume reduction devices and bilateral upper lobe and anastomotic sutures. 2. Stable right thoracostomy tube with suspected stable trace residual pneumothorax. There is also stable soft tissue gas along the lateral right chest wall. 3. Emphysema. Electronically signed by: Jackelyn Wilson MD (07/15/2018 8:55 AM) [facility]
[2018-07-15 11:00] VITALS: BP 116/62
--- NOTE | 2018-07-15 11:31 | PDOC ---
Progress Note Subjective Subjective Air leak has resolved. CXR right lung remains expanded on water seal ROS ROS No nausea No vomiting No pain No rash Vital Sign Vital Signs Vital Signs Date Time Temp Pulse Resp B/P (MAP) Pulse Ox O2 Delivery O2 Flow Rate FiO2 07/15/18 07:54 Room Air 07/15/18 07:39 18 94 07/15/18 07:00 98.1 94 126/56 (79) 98.1 Physical Exam PHYSICAL EXAM GENERAL: NAD, Alert HEENT: PERRL, OC/OP NECK: Supple, no JVD, no LN LUNGS: Clear HEART: S1S2, no gallop, no murmur ABD: Soft, NT, no organomegaly, no rebound EXT: No edema, no cyanosis HEALTH MANAGEMENT CONSULTANT: Alert, oriented x 3, no focal neurologic deficit SKIN: No rash IV: ok Objective Assessment S/p R VATS, wedge resection and mechanical pleurodesis, prolonged air leak Air leak has resolved. CXR right lung remains expanded on water seal Plan Plan of Care D/c chest tube, then CXR Patient would like to stay for another day or so, just to be sure, given his prolonged complex postop course, which I think is reasonable TOBY MG MD Jul 15, 2018 11:31
[2018-07-15 15:37] VITALS: BP 124/66
--- NOTE | 2018-07-15 19:02 | RAD ---
EXAM: Chest, single view. HISTORY: Chest tube removal. COMPARISON: 07/15/2018 FINDINGS: A frontal view of the chest is obtained. There has been interval removal of a right thoracostomy tube. There is a stable small lateral right pneumothorax. There is stable right superhilar atelectasis, scarring or contusion. There are volume reduction devices within the right hilum and suprahilar region. There are biapical anastomotic sutures. There is emphysema. There is soft tissue gas along the right neck and chest wall. IMPRESSION: 1. Interval right thoracostomy tube removal there is a stable lateral right pneumothorax. 2. Stable right superhilar atelectasis, scarring or contusion. 3. Stable biapical anastomotic sutures and right hilar and suprahilar volume reduction devices. 4. Emphysema. Electronically signed by: Jackelyn Wilson MD (07/15/2018 6:59 PM) [facility]
[2018-07-15 19:30] VITALS: BP 122/89
[2018-07-15] MEDS: ZOLPIDEM 5 MG TABLET. PO PRN (22:52)
[2018-07-15 23:11] VITALS: BP 137/86
[2018-07-16 07:55] VITALS: BP 112/76
[2018-07-16] MEDS: oxyCODONE/APAP 5/325 1 TAB TABLET PO PRN ×4 (07:59→22:31)
[2018-07-16] MEDS: hydrOXYzine PAMOATE 25 MG CAPSULE PO SCH ×3 (07:59→20:48)
[2018-07-16] MEDS: IBUPROFEN 800 MG TABLET. PO SCH ×2 (07:59→20:48)
[2018-07-16] MEDS: FAMOTIDINE 20 MG TABLET. PO SCH ×2 (07:59→20:48)
[2018-07-16] MEDS: SENNOSIDES/DOCUSATE 8.6/50MG TABLET. PO SCH ×2 (08:00→20:48)
[2018-07-16] MEDS: DOCUSATE SODIUM 100 MG CAPSULE. PO SCH (08:00)
--- NOTE | 2018-07-16 08:24 | RAD ---
EXAM: Abdomen, single view. HISTORY: Thoracostomy tube removal. COMPARISON: 07/15/2018 FINDINGS: A frontal view of the chest is obtained. There is been no significant change in a small lateral right pneumothorax. There is slight decreased right superhilar linear atelectasis or scarring. There is stable trace right pleural effusion. There are volume reduction devices overlying the right hilum and suprahilar region. There are bilateral upper lobe anastomotic sutures due to prior partial lung resection. There is soft tissue gas along the right neck and lateral chest wall. A small nodular opacity overlying the left upper lobe which is not seen on the recent comparison study and likely due to overlying osseous shadows rather than a nodule. The heart is normal in size. There is emphysema. IMPRESSION: 1. Stable small lateral right pneumothorax status post thoracostomy tube removal. There is also a stable trace right pleural effusion. 2. Stable right suprahilar opacity due to atelectasis or scarring. There are right hilar and suprahilar volume reduction devices and bilateral upper lobe anastomotic sutures. 3. Emphysema. Electronically signed by: Jackelyn Wilson MD (07/16/2018 8:22 AM) [facility]
[2018-07-16 10:18] VITALS: BP 117/81
[2018-07-16 14:59] VITALS: BP 126/64
[2018-07-16 19:00] VITALS: BP 148/84
[2018-07-16] MEDS: ZOLPIDEM 5 MG TABLET. PO PRN (22:31)
[2018-07-16 22:34] VITALS: BP 111/84
[2018-07-17 07:39] VITALS: BP 107/79
[2018-07-17] MEDS: oxyCODONE/APAP 5/325 1 TAB TABLET PO PRN ×2 (07:57→13:26)
[2018-07-17] MEDS: DOCUSATE SODIUM 100 MG CAPSULE. PO SCH (08:28)
[2018-07-17] MEDS: SENNOSIDES/DOCUSATE 8.6/50MG TABLET. PO SCH (08:29)
[2018-07-17] MEDS: IBUPROFEN 800 MG TABLET. PO SCH (08:30)
[2018-07-17] MEDS: FAMOTIDINE 20 MG TABLET. PO SCH (08:31)
[2018-07-17] MEDS: hydrOXYzine PAMOATE 25 MG CAPSULE PO SCH ×2 (08:31→13:25)
[2018-07-17 10:36] VITALS: BP 127/81
[2018-07-17] MEDS ORDERED: IBUP800T19 PO (13:20)
[2018-07-17] MEDS ORDERED: OXYC1TAB7 PO (13:20)
--- NOTE | 2018-07-17 13:33 | PDOC3 ---
Discharge Summary Visit Information Date of Admission: Jul 07, 2018 Date of Discharge: Jul 17, 2018 Admitting Diagnosis Comment: 1. bronchopleural fistula 2. apical emphysema with blebs; s/p prior right VATS with wedge resection 3. bipolar disorder with psychosis 4. 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 apical emphysema with blebs; s/p prior right VATS with wedge resection 3. bipolar disorder with psychosis 4. seizure disorder Brief Hospital Course Allergies Allergies Coded Allergies Type Severity Reaction Last Updated Verified aspartame Allergy Severe SUGAR SUBSTITUTES = THROAT SWELLS 06/28/18 Yes spinach Allergy Severe 06/28/18 Yes diazepam Allergy Intermediate 06/28/18 Yes haloperidol Adverse Reaction Severe 06/28/18 Yes lorazepam Adverse Reaction Severe 06/28/18 Yes alprazolam Adverse Reaction Intermediate 06/28/18 Yes bupropion Adverse Reaction Intermediate 06/28/18 Yes fluticasone Adverse Reaction Intermediate 06/28/18 Yes Vital Signs Vital Signs Date Time Temp Pulse Resp B/P (MAP) Pulse Ox O2 Delivery O2 Flow Rate FiO2 07/17/18 10:36 98.2 88 19 127/81 (96) 98 Room Air 98.2 Brief Hospital Course Mr. Carr is a 32 old male who underwent a right VATS with an extensive apical wedge resection and mechanical pleurodesis for recurrent pneumothorax on 2017 . His postoperative course was complicated by a very large and persistent air leak with inability to keep the lung expanded. Owing to the fragility and poor quality of his lung parenchyma and severe pulmonary emphysema, he was transferred to [facility] for an endobronchial valve on 07/03/2018. While the air leak significantly improved, and the right lung fully expanded, there was still a moderate air leak. He failed being off suction @ [facility] and requested to be transferred back to [facility] returning 07/07/2018. Chest tube was finally taken off suction on 07/13/2018 and then removed this past weekend. He is walking without difficulty though continues to c/o pain and requiring NSAIDs and narcotic pain medications. He will discharge home today. Discharge Information Condition at Discharge: Stable Follow Up: Weeks (Dr. Cazares in 3 - 4 weeks with chest x-ray prior to appt) Disposition/Orders: D/C to Home Scheduled Albuterol Sulfate (Albuterol Sulfate Conc Neb Soln) 2.5 Mg/0.5 Ml Vial.neb, 2.5 MG NEB QID for FOR ASTHMA, Ref 0 (Reported) Entered as Reported by: Jacob Perez on 07/07/18 135 Last Taken: 2.5 on Unknown Date & Time Last Action: Converted on 07/07/181404 by REGINO MARTIN Docusate Sodium (Colace) 100 Mg Capsule, 100 MG PO DAILY, (Reported) Entered as Reported by: Jacob Perez on 07/07/181349 Last Taken: 100 on 07/07/18 Last Action: Continued on 07/07/181404 by REGINO MARTIN Famotidine (Famotidine) 20 Mg Tablet, 20 MG PO BID for 10 Days, #20 Ref 0 Prescribed by: ZAHIRA DON on 07/03/181351 Last Taken: Unknown Dose on 07/07/18 Last Action: Continued on 07/07/181404 by REGINO MARTIN Hydroxyzine Hcl (Hydroxyzine Hcl) 25 Mg Tablet, 1 TAB PO TID, #30 (Reported) Entered as Reported by: Paula Benitez on 06/21/18 1329 Last Taken: Unknown Dose on 07/07/18 Last Action: Converted on 07/07/181404 by REGINO MARTIN Sennosides/Docusate Sodium (Senna-Time S Tablet) 1 Each Tablet, 1 TAB PO BID for constipation with narcotics for 10 Days, #20 Ref 0 Prescribed by: ZAHIRA DON on 07/03/181351 Last Taken: Unknown Dose on 07/07/18 Last Action: Continued on 07/07/181404 by REGINO MARTIN Scheduled PRN Oxycodone Hcl/Acetaminophen (Oxycodone-Acetaminophen 5-325) 1 Each Tablet, 1-2 TAB PO PRN Q4-6HRS PRN for MODERATE PAIN, SEVERE PAIN, #15 Prescribed by: ZAHIRA DON on 07/03/181351 Last Action: Continued on 07/07/181404 by REGINO MARTIN Zolpidem Tartrate (Ambien) 5 Mg Tablet, 5 MG PO HS PRN for INSOMNIA, Ref 0 ( Reported) Entered as Reported by: Jacob Perez on 07/07/18 135 Last Taken: 5 on 07/06/18 Last Action: Continued on 07/07/18 1405 by ZAHIRA BUSH APRN Jul 17, 2018 13:33
--- NOTE | 2018-07-17 13:38 | PDOC ---
Progress Note Subjective Subjective Right lung remains expanded after removing chest tube 2 days ago. 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 Doing well, no issues Plan Plan of Care D/c home today F/u in clinic in 2 weeks with CXR beforehand Needs to follow up with Dr Kay at [place] in 1 month to have bronchial valves removed TOBY MG MD Jul 17, 2018 13:38
== END 2018-07-17 14:10 | disposition home or self-care (01) | DRG 199 ==
LOC: 2 SOUTH 12:46
PROVIDERS: ADMIT Thoracic Surgery (Cardiothoracic Vascular Surgery); ATTEND Thoracic Surgery (Cardiothoracic Vascular Surgery)
PROC: 0BPKX0Z Removal of Drainage Device from Right Lung, External Approach (ICD-10-PCS; principal; 2018-07-15)
DX: J95.812 Postprocedural air leak (principal); J86.0 Pyothorax with fistula; Z68.1 Body mass index [BMI] 19.9 or less, adult; J44.9 Chronic obstructive pulmonary disease, unspecified; F41.9 Anxiety disorder, unspecified; G40.909 Epilepsy, unspecified, not intractable, without status epilepticus; F31.9 Bipolar disorder, unspecified; Z88.6 Allergy status to analgesic agent; Z88.8 Allergy status to other drugs, medicaments and biological substances; F29 Unspecified psychosis not due to a substance or known physiological condition
CPT/HCPCS: 36415; 71045; 80053; 85027; 94640; 94760; J7613; Q0177

== ENCOUNTER → 2019-03-27 | Outpatient (CLI) | payer OTHER ==
[~2019-03-27] VITALS: Ht 172.7 cm; Wt 55.3 kg
[~2019-03-27] MED LIST changes: +ALBU2.5V14 NEB; +DOCU-109 PO; +IBUP800T19 PO; +NORMAL SALINE IV ONE; +SINCALIDE IV ONE; +ZOLP5TAB PO
--- NOTE | 2019-03-27 13:08 | RAD ---
Radionuclide hepatobiliary scan with gallbladder ejection fraction, 03/27/2019: HISTORY: Upper abdominal pain, nausea, vomiting, diarrhea Following IV injection of 5.3 mCi of technetium 99m Choletec there was prompt uptake of the radionuclide from the blood stream by the liver. Activity is present in the gallbladder and bile ducts at 5 minutes. Small bowel activity developed at 40 minutes. Additional imaging of the gallbladder was performed following IV injection of 1.1 mcg of cholecystokinin. There is good gallbladder emptying with the gallbladder ejection fraction calculated at 87 percent. IMPRESSION: 1. Normal radionuclide hepatobiliary scan. 2. The gallbladder ejection fraction is 87 percent. Electronically signed by: Sheng Rosario MD (03/27/2019 1:06 PM) [facility]
== END | disposition home or self-care (01) ==
LOC: NM 08:55
PROVIDERS: ATTEND Internal Medicine Gastroenterology
DX: R10.11 Right upper quadrant pain (principal); R11.2 Nausea with vomiting, unspecified; R19.7 Diarrhea, unspecified
CPT/HCPCS: 78227; A9537; J2805